=== PATIENT | male | born 2000 | race Caucasian/White ===

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

== ENCOUNTER 2024-06-26 08:00 | Outpatient (RCR) | payer OTHER, SELFPAY ==
--- NOTE | 2024-06-19 11:12 | BH.SGPN.GN ---
Behaviors/Verbalizations/Mental Status: [] Client alert and oriented, casually dressed and groomed. Eye contact good. Motor activity appropriate. Speech within normal limits. Affect congruent, mood euthymic. Thoughts linear, logical, no signs of hallucinations or delusions. Client Response/Progress/Benefit: [] Client's first day in program and responded well to session, attentive and consistently provided input. Did well to process activity and work with group to relate the strategies used to overcome barriers in the activity to managing change in own life. Client identified a change would like to make is to improve groom habits. Client stated currently in preparation stage. Reported goal to work towards is utilize note cards with routine as reminders. Appeared to benefit from identifying a small goal to work towards. Client will continue IOP tx to prevent decompensation, gain healthy coping skills, and improve daily functioning. Narrative Note: []
--- NOTE | 2024-06-26 08:59 | BH.COMM_ITS ---
Communication Note Communication with Client Communication Note: Met with patient to complete intake paperwork. Completed [place] Suicide Screening. Moderate risk. Denies SI, plan, or intent. Passive thoughts of . See individual note for more information. No hx of attempts. Protective factors reported. Future-oriented. Reviewed with Dr. Garcia with plan to admit to IOP with dx F33.2.
--- NOTE | 2024-06-26 10:10 | BH.SGPN.GN ---
Behaviors/Verbalizations/Mental Status: [] Client alert and oriented, casually dressed and groomed. Eye contact good. Motor activity appropriate. Speech within normal limits. Affect congruent, mood euthymic. Thoughts linear, logical, no signs of hallucinations or delusions. Client Response/Progress/Benefit: [] Client's first day in program and responded well to session, contributing to discussion and engaged during the activity. Group identified the benefits of change which included: better mental health, increased confidence, and improved relationships. Worked with the group to identify barriers to change, which included: uncomfortable emotions such as anxiety, lack of motivation,fear of failure, disappointing others, and loss of momentum. Client discussed how change can be hard when in a bad place with your mental health. Client participated along with group in activity where they identified and discussed the emotions related to change.. Benefited from increased awareness and understanding of emotions, benefits, and barriers related to change. Will continue IOP tx to continue to increase overall functioning.
--- NOTE | 2024-06-26 15:01 | BH.MDN ---
Multi-Disciplinary Note Note 60-min Individual: Time Started:: 09:00 Date: 06/26/24 Purpose of session/treatment goals addressed:: Purpose of session was to gather background information, build rapport, and identify treatment goals. Eye Contact:: Good Motor Activity:: Appropriate Appearance:: Casual Speech:: Appropriate Mood:: Anxious Affect:: Congruent Thoughts:: Linear, Logical and No evidence of hallucinations/delusions noted Staff Interventions:: CBT techniques, rapport building, strengths perspective, treatment planning, completed risk assessment / safety planning (Initial [place] Suicide Severity Rating Scale Screening and Risk assessment completed) and goal setting Client Response:: Reported they are seeking treatment because they have been feeling hopeless, useless, financial stress, and feels like they are not contributing to society. Client reported about 4 to 5 months ago is when their mental health started to decompensate after they lost their job. Client reported additional compounding stressor was when they were living in [place] with 2 roommates one of their roommates started to date client's ex-girlfriend in February or March. Client stated this created a really tense living situation and ultimately ended in client having to move of this year to [place]. Client stated after losing their job they felt less motivated which contributed to increased depression and his anxiety. Client reported they currently has been living in [place] since April of this year with 2 roommates. Client stated their living environment has improved but they still lack motivation, lacks energy, some loss of interest, loss of appetite, depressed mood, and sleeps too much. Client reported they do have some things they enjoy like playing games with their friends but when they are struggling tends to isolate and not go to those goldy nights. Client reported they have a supportive girlfriend but notes that she also has been struggling with her mental health with recent discharge from psychiatric hospitalization last week. Client stated they are hopeful getting help as well will be good for both of them. Client shared they have daily anxiety with racing thoughts, physical symptoms, and constant worry. Client said they has history of panic attacks, but notes does not have them on a frequent basis. Client stated they have probably had about 3 panic attacks in the last year. Client shares they have been to inpatient psychiatric unit on 2 occasions with the first 1 being in 2019 and the second being in 2020. Client stated both hospitalizations were for suicidal ideation. Client reported that the hospitalization in 2020 they felt was more serious because they did feel more actively suicidal compared to the 2019 was when they were pink slipped by a therapist at the time. Client reported they feel like their mental health currently impacts ability to function because they sleep about 10 to 12 hours a day which includes taking 2-3 naps to escape. Client stated they also drink about 3-5 alcoholic drinks 4-5 times a week. Client stated this is the most alcohol they have ever drank in his life which is something they reported they wants to decrease. Client reported they did not drink last night but told himself they want to not drink this week while they is in IOP. Client is established with an individual counselor at [facility], and they see this therapist 2 times a week virtually. Client stated they is also established with a psychiatrist through [facility] and they see a psychiatrist monthly. Client reported while they is in the program they would like to learn strategies to help manage his anxiety, help with decreasing negative self-talk, work through fear of failure and fear of rejection, and improve ability to cope with depressed symptoms. Risks/Concerns:: Per C-SSRS client is moderate risk for suicidal behavior. Client reports lifetime history of suicidal thoughts with intention in 2020. Client reported at the time he was really depressed and had called his mom letting her know that if she did not come to see him he would probably kill himself. Client stated after talking to his mom he was hospitalized inpatient psychiatric facility and then did a virtual IOP program through [facility]. Client stated in the last 30 days he denies any suicidal intent or plan. Client reported last 3 days he has had suicidal thoughts with ideas and of using a gun. Client stated he knows his parents have guns but denies access to firearms at his apartment. Client reported his parents have the gun secured in their home. Client denies any suicidal attempts throughout his life. Client reports history of non-suicidal self-injurious behavior with most recent self-harm about 6 months ago. Client stated self-harm is not something that he engages in consistently. Client stated he did write a suicide note 1 time in 2020 but did not write it with the intent to give to anybody at the time but just in case anything happened to him. Client denies any additional preparatory behaviors since then. Client denies any aborted or interrupted suicide attempts. Client denies current suicidal ideation, plan, or intention. Client stated he feels able to maintain safety. Client describes having a very supportive social network through his 2 roommates, a girlfriend, and parents. Progress Toward Goals/Plan:: No progress observed given first day in IOP. Client stated that would like to learn skills and strategies on how to manage depression and anxiety more effectively so that can improve daily functioning. Client stated does have a job starting tomorrow and is looking forward to getting back to having more structure and routine. Client reported the new job stated they would be very accommodating for them so that they can complete IOP while working maybe on a part-time basis to start. Plan is for client to continue IOP to improve daily functioning, increase healthy coping skills, and prevent decompensation. Time Stopped:: 10:00
--- NOTE | 2024-06-28 13:59 | BH.DS_ITS ---
Discharge Summary Demographics Date of Admission:: 06/26/24 Discharge Date: 06/28/24 Presenting Problems at Admission:: Reported they are seeking treatment because they have been feeling hopeless, useless, financial stress, and feels like they are not contributing to society. Client reported about 4 to 5 months ago is when their mental health started to decompensate after they lost their job. Client reported additional compounding stressor was when they were living in [place] with 2 roommates one of their roommates started to date client's ex-girlfriend in February or March. Client stated this created a really tense living situation and ultimately ended in client having to move of this year to [place]. Client reported they feel like their mental health currently impacts ability to function because they sleep about 10 to 12 hours a day which includes taking 2-3 naps to escape. Client stated they also drink about 3-5 alcoholic drinks 4-5 times a week. Client stated this is the most alcohol they have ever drank in his life which is something they reported they wants to decrease. 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 Client admitted to [facility] on 06/28/24. Treatment Progress During Treatment & Response: No progress observed given client only attended one IOP session. Issues Still to be Addressed:: Client could benefit from building healthy skills, challenging distortions, improving motivation, and improving distress tolerance. Discharge Recommendations/Instructions:: Client encouraged to follow recommendations provided by [facility] Discharge Team. Discharge Handout
== END 2024-06-28 14:39 ==
LOC: BHIOP 08:00
PROVIDERS: Referring Provider Psychiatry & Neurology Psychiatry; Visit Provider Psychiatry & Neurology Psychiatry
DX: F33.2 Major depressive disorder, recurrent severe without psychotic features (principal); F10.90 Alcohol use, unspecified, uncomplicated; F41.9 Anxiety disorder, unspecified; Z79.899 Other long term (current) drug therapy
CPT/HCPCS: S9480; 90837; 90853

== ENCOUNTER 2024-07-10 08:00 | Outpatient (RCR) | payer OTHER, SELFPAY ==
--- NOTE | 2024-07-10 09:01 | BH.COMM_ITS ---
Communication Note Communication with Client Communication Note: Met with patient to complete intake paperwork. Completed [place] Suicide Screening. Moderate risk. Denies SI, plan, or intent. Passive thoughts of . No hx of attempts. Protective factors reported. Future- oriented. Stated recent psychiatric admission was not due to suicidal thoughts or risk. Reported was hospitalized due to dissociation and not functioning. Reviewed with Dr. Garcia with plan to admit to [facility] with dx F33.2.
--- NOTE | 2024-07-10 09:05 | BH.SGPN.GN ---
Behaviors/Verbalizations/Mental Status: [] Eye contact is good. Motor activity is appropriate. Appearance is casual. Speech is Appropriate. Mood is depressed. Affect is congruent. Thoughts are linear and logical. No evidence of psychosis. Reviewed daily check in sheet and pt reports 2/5 for suicidal ideations and 0/5 for intent. Risk assessment completed prior to group. Client Response/Progress/Benefit: [] Pt was an active participant in group discussions. Attentive. Daily symptom tracker notes 2/5 for depression and anxiety.. Briefly introduced himself to the group as this was his first day in IOP. ? I struggle with ruminating?. He briefly discussed his recent psychiatric admission as well as medication changes which have helped him. Utilizing ?DBT skills? consistently which he has found helpful in the moment. Several psychosocial stressors currently. Progress noted. Benefited from group support, encouragement, and feedback. Will continue in [facility] to maintain safety, prevent decompensation/re-admission to psych, and to increase healthy coping skills. Narrative Note: []
--- NOTE | 2024-07-10 10:15 | BH.SGPN.GN ---
Behaviors/Verbalizations/Mental Status: [] Client alert and oriented, casually dressed and groomed. Eye contact good. Motor activity appropriate. Speech within normal limits. Affect congruent, mood euthymic. Thoughts linear, logical, no signs of hallucinations or delusions. Client Response/Progress/Benefit: [] Client was an active participant AEB contributing to discussion, taking notes, and engaging in group activity. Connected with the topic of pitfalls and listened to group discussion on barriers that prevent from choosing a healthier path to mental wellness. Group worked together to identify examples of personal pitfalls. Pt identified personal pitfalls to include: self-sabotage, inability to make decisions, not acknowledging self-worth, and upset over things can't control. Client benefited from group as client learned to better identify potential barriers to improving mental health symptoms. Client will continue IOP tx to promote use of healthy coping skills, challenge negative/distorted thoughts, and prevent decompensation.
--- NOTE | 2024-07-10 11:15 | BH.SGPN.GN ---
Behaviors/Verbalizations/Mental Status: []Client alert and oriented, casually dressed and groomed. Eye contact good. Motor activity appropriate. Speech within normal limits. Affect congruent, mood euthymic. Thoughts linear, logical, no signs of hallucinations or delusions. Client Response/Progress/Benefit: [] Pt receptive of session, engaged throughout AEB Pt actively listening and contributing to discussion as well as taking notes.? Pt participated in the experiential activity and did well to communicate ideas with peers and manage emotions. Pt attentive as group processed how the emotions and perspective of the group impacted the activity. Group worked together to identify different coping skills to help manage pitfalls. Pt identified pitfall they struggle with as getting upset over things he cannot control. Pt plans to work on their pitfall by practicing self-compassion. Benefited from identifying personal pitfalls and strategies to overcome these pitfalls. Pt will continue IOP tx to prevent decompensation, gain healthy coping skills, and improve daily functioning. Narrative Note: []
--- NOTE | 2024-07-12 09:05 | BH.SGPN.GN ---
Behaviors/Verbalizations/Mental Status: [] Client alert and oriented, casual appearance. Eye contact good. Motor activity appropriate. Speech within normal limits. Affect congruent, mood anxious. Thoughts linear, logical, no signs of hallucinations or delusions. Reviewed client's symptom tracker, no risk for suicidal ideation, plan, or intent. Client Response/Progress/Benefit: [] Client responded well to session AEB listening to others and sharing thoughts/feelings. Client shared current stressor is feeling anxious because he is waiting to hear back from a job that he interviewed with last week. Client reported he really thinks he could benefit from having a job so it has been stressful financially to not have something consistently coming in. Client stated mental positive is taking his meds consistently which historically he stated is something he has struggled with. Client stated additional mental positive as being more open with his family and friends about how he is feeling instead of keeping it to himself. Appeared to benefit from support from peers. Will continue IOP tx to promote use of healthy coping skills, improve confidence, and prevent decompensation. Narrative Note: []
--- NOTE | 2024-07-12 10:10 | BH.SGPN.GN ---
Behaviors/Verbalizations/Mental Status: [] Pt alert and oriented, casually dressed and groomed. Eye contact good. Motor activity appropriate. Speech within normal limits. Affect congruent, mood depressed and anxious. Thoughts linear, logical, no signs of hallucinations or delusions. Client Response/Progress/Benefit: [] Pt an active participant in group discussions on defining conflict (internal/external) and possible benefits to conflict. Attentive during psychoeducation on conflict styles (avoidant, accommodating, competing, cooperative) and engaged during group discussion in which peers identified the benefits and consequences to each conflict style. Pt identified that they are a mix between cooperative, competing, and avoidant. . Benefited from increased awareness of the impact of conflict styles in mental health. Will continue in IOP tx for one more day to prevent decompensation/re-admission to psych unit, increase healthy coping, and improve functioning to return to work. Narrative Note: []
--- NOTE | 2024-07-12 11:10 | BH.SGPN.GN ---
Behaviors/Verbalizations/Mental Status: []Eye contact is good. Motor activity is appropriate. Appearance is casual. Speech is Appropriate. Mood is content. Affect is congruent. Thoughts are linear and logical. No evidence of psychosis. Client Response/Progress/Benefit: [] Pt was an active participant in group discussions and activity. Engaged with peers in activity and identifying healthy ways to approach each conflict scenario. Group discussed various conflict resolution skills that can be useful in addressing conflict outside of IOP. Benefited from practicing and learning conflict resolution skills during group activity. Able to identify areas pt wants to work on to improve how pt manages conflict both internally and externally. Expressed wanting to work on their communication skills with their roommates to prevent conflict avoidance and ensure his needs are met as well. Will continue in IOP to improve consistent mood stability, promote application of skills, and prevent decompensation. Narrative Note: []
--- NOTE | 2024-07-12 14:01 | BH.MDN ---
Multi-Disciplinary Note Note 45-min Individual: Time Started:: 12:05 Date: 07/12/24 Purpose of session/treatment goals addressed:: Purpose of session was to gather background information, identify treatment goals, and build rapport. Eye Contact:: Good Motor Activity:: Appropriate Appearance:: Casual Speech:: Appropriate Mood:: Euthymic Affect:: Congruent Thoughts:: Linear, Logical and No evidence of hallucinations/delusions noted Staff Interventions:: CBT techniques, mindfulness skills, rapport building, strengths perspective, treatment planning and taught coping skills (breathing and grounding) Client Response:: Client reported he is feeling better since being discharged from inpatient psychiatric unit. Client stated he went to the inpatient psychiatric unit because his after talking to his outpatient therapist they discussed how he has been struggling with daily functioning due to severe dissociation. Client reported he did not go to the hospital because he was having active suicidal thoughts with the intent to kill himself. Client stated he still will have occasional passive thoughts of but denies any active suicidal thoughts. Client reported while he was inpatient they changed some of his medications and added vitamin D. Client reported once he was discharged from inpatient he felt less anxious, improved mood, and improved motivation. Client stated he was able to many things done around the house the last couple days. Client reported his anxiety and depression have significantly decreased compared to before he went into the hospital. Client shared prior to hospitalization he started IOP on 06/26/24 seeking treatment because he had been feeling hopeless, useless, financial stress, and felt like he wasn't contributing to society. Client reported about 4 to 5 months ago is when their mental health started to decompensate after they lost their job. Client reported additional compounding stressor was when they were living in [place] with 2 roommates one of their roommates started to date client's ex-girlfriend in February or March. Client stated that created a really tense living situation and ultimately ended in client having to move to [place]. Client stated after losing their job he felt less motivated which contributed to increased depression and his anxiety. Client reported he currently has been living in [place] since April of this year with 2 roommates. Client stated his living environment has improved but they still lack motivation, lacks energy, some loss of interest, loss of appetite, depressed mood, and sleeps too much. Client stated with the help of his girlfriend he has been able to apply to over 10 jobs. Client reported he had a job interview for a [employer], but has not heard back if he has been hired. Client stated his feeling antsy because he wants to know if this job will work out. client reported he does believe being without a job for several months does negatively impact his mood. Client stated having a job gives purpose, direction, and structure. Client reported he also would have decreased financial stress because he could afford his bills. Client stated while in IOP he would like to learn skills to manage his anxiety more effectively, improve ability to challenge distorted thoughts, and improve daily functioning. Risks/Concerns:: Client reports passive thoughts of . Client denies active suicidal thoughts, plan, or intention to date. Future oriented. Denies access to firearms. Identifies family as protective factor. Lives with supportive roommates. Progress Toward Goals/Plan:: Progress noted with client reporting improved mood, decreased anxiety, and improved motivation since being discharged from inpatient late last week. Client reported having some medication changes seems to have improved his mood, especially with the added vitamin D. Client continues to work feeling anxious about his financial situation due to not having a job for several months. Client reported he does have a goal to apply to several jobs everyday. Plan is for client to continue IOP to improve healthy coping skills, challenge distorted thoughts, and prevent decompensation. Time Stopped:: 12:40
--- NOTE | 2024-07-12 14:58 | BH.PSA ---
Development & Family of Origin Family Who currently lives in your home?: Lives with two roommates.
--- NOTE | 2024-07-12 14:59 | BH.MTP ---
Master Treatment Plan Patient Information Program Physician:: Dr. Garcia Primary Therapist:: Kiarra Victoria, [facility] Psychiatric Diagnoses Psychiatric Diagnoses:: 1. Major depressive disorder, recurrent, severe without psychosis 2. Generalized anxiety disorder 3. Financial, job and primary support issues Diagnosis Code(s):: F33.2 Estimated LOS Estimated LOS (in weeks):: 6 Problem/Goal #1 Problem/Goal #1 Stated Goal:: Client will reduce depression, feelings of hopelessness, and low motivation due to Major Depressive Disorder through Intensive Outpatient Program. Description of Barriers: Potential barriers include: distorted thoughts, negative self-talk, hx of not taking medications consistently, and low motivation. Functional Impact: The patient is a 23-year-old single male who identifies as nonbinary with a history of depression, anxiety and panic attacks who was referred to the [facility] behavioral health IOP after recent psychiatric admission at [facility] from June 29 to July 05, 2024 for depression and suicidal ideation. Recent stressors include the patient losing his job for 5 months ago and this has resulted in financial stress. Another stressor was the patient was living in [place] and one of his roommates started to date his ex girlfriend in March 2024 so the patient moved out of there and moved back to [place] and he now lives in [place] with 2 roommates. The patient endorses sadness, hopelessness, worthlessness, lack of motivation, loss of interest, but still enjoys video games play and playing them with friends. Energy has been lower for the past 2 or 3 days and his concentration is somewhat decreased. He endorses guilt, passive thoughts of . He denies suicidal ideation, plan for suicide, homicidal ideation, hallucinations, delusions, goldy. Objectives Objective #1: Stated Objective: Client will learn and utilize 2-3 healthy coping strategies to manage depressive symptoms. Interventions: Therapist will utilize CBT techniques to assist client with understanding the connection between thoughts, feelings and behaviors. Education will be provided on behavioral activation. Therapist will assist client in learning internal coping strategies to manage depressive symptoms, along with helping client identify triggers. Discharge Criteria: Client will have achieved this goal when can verbalize and has practiced at least 2 healthy coping strategies that successfully manage depressive symptoms. Target Date: 08/21/24 Review Date: 08/07/24 Objective #2: Stated Objective: Client will identify and replace 2-3 negative thinking patterns that reinforce feelings of hopelessness and helplessness. Interventions: Through group and individual therapy sessions client will learn how to identify, challenge, and replace dysfunctional thoughts with positive self-enhancing thoughts. Discharge Criteria: Client will have achieved this goal when can identify at least 2 negative thinking patterns, and replace thoughts with rational thoughts. Target Date: 08/21/24 Review Date: 08/07/24 Problem/Goal #2 Problem/Goal #2 Stated Goal:: Stabilize anxiety level while increasing ability to function on daily basis. Description of Barriers: Potential barriers include: distorted thoughts, negative self-talk, hx of not taking medications consistently, and low motivation. Functional Impact: The patient is a 23-year-old single male who identifies as nonbinary with a history of depression, anxiety and panic attacks who was referred to the [facility] behavioral health IOP after recent psychiatric admission at [facility] from June 29 to July 05, 2024 for depression and suicidal ideation. Recent stressors include the patient losing his job for 5 months ago and this has resulted in financial stress. Another stressor was the patient was living in [place] and one of his roommates started to date his ex girlfriend in March 2024 so the patient moved out of there and moved back to [place] and he now lives in [place] with 2 roommates. The patient endorses sadness, hopelessness, worthlessness, lack of motivation, loss of interest, but still enjoys video games play and playing them with friends. Energy has been lower for the past 2 or 3 days and his concentration is somewhat decreased. He endorses guilt, passive thoughts of . He denies suicidal ideation, plan for suicide, homicidal ideation, hallucinations, delusions, goldy. Objectives Objective #1: Stated Objective: Client will learn and implement 2-3 calming skills to reduce overall anxiety and manage anxiety symptoms. Interventions: Therapist and group sessions will help client identify physiological warning signs of anxiety, increase awareness of thoughts that increase anxiety, and identify behaviors that reinforce anxious symptoms. Group and individual counseling will teach client calming skills to help manage anxious symptoms. Discharge Criteria: Client will have achieved this goal when can verbalize at least 2 calming skills and reports skills successfully help reduce anxious symptoms. Target Date: 08/21/24 Review Date: 08/07/24 Objective #2: Stated Objective: Client will identify 2-3 anxiety triggers and 2 coping skills to use when feeling anxious. Interventions: Therapist will assist client in exploring what triggers anxiety and teach client coping strategies to effectively manage anxiety symptoms. Discharge Criteria: Client will have met this goal when can identify at least 2 triggers to anxiety and verbalize two healthy ways to cope with feelings of anxiety. Target Date: 08/21/24 Review Date: 08/07/24
--- NOTE | 2024-07-17 13:52 | BH.DS ---
Discharge Summary Demographics Date of Admission:: 06/26/24 Discharge Date: 06/28/24
== END 2024-07-13 23:59 ==
LOC: BHIOP 08:00
PROVIDERS: Referring Provider Psychiatry & Neurology Psychiatry; Visit Provider Psychiatry & Neurology Psychiatry
DX: F33.2 Major depressive disorder, recurrent severe without psychotic features (principal); F41.1 Generalized anxiety disorder
CPT/HCPCS: S9480; 90834; 90853

== ENCOUNTER 2024-07-14 08:01 | Outpatient (RCR) | payer OTHER, SELFPAY ==
--- NOTE | 2024-07-14 09:05 | BH.SGPN.GN ---
Behaviors/Verbalizations/Mental Status: [] Eye contact is good. Motor activity is appropriate. Appearance is casual. Speech is Appropriate. Mood is euthymic. Affect is full. Thoughts are linear and logical. No evidence of psychosis. Reviewed daily check in sheet and no reports of suicidal ideations or intent. Client Response/Progress/Benefit: [] Pt was an active participant in group discussions. Attentive. Emotion for today is excited. Has been taking his medications consistently which had been a challenge for him in the past. Shared recent stressful event and how he used anxiety management strategies. Has psychosocial stressors which according to pt he is managing appropriately. Since discharge from psychiatric unit pt has been utilizing skills and is hopeful. Progress noted. Benefited from group support, encouragement, and feedback. Will continue in IOP to maintain safety/prevent decompensation, increase healthy coping, and improve functioning. Narrative Note: []
--- NOTE | 2024-07-14 10:16 | BH.SGPN.GN ---
Behaviors/Verbalizations/Mental Status: [] Eye contact is good. Motor activity is appropriate. Appearance is casual. Speech is Appropriate. Mood is content. Affect is congruent. Thoughts are linear and logical. No evidence of psychosis. Client Response/Progress/Benefit: [] Pt participated at times during group discussion. Engaged in group activity and attentive during psychoeducation. Along with peers, pt was able to identify barriers to taking action in their life. Identified several symptoms and stressors that pt feels are holding them back from progress such as fear of failure, people pleasing, and fear of disappointing others. Stated these things have kept pt from giving himself credit for his own accomplishments. Benefited from increased self-awareness of obstacles. Will continue IOP tx to prevent decompensation, stabilize mood, and increase consistency of healthy coping. Narrative Note: []
--- NOTE | 2024-07-14 11:10 | BH.SGPN.GN ---
Behaviors/Verbalizations/Mental Status: []Pt alert and oriented, casually dressed and groomed. Eye contact good. Motor activity appropriate. Speech within normal limits. Affect congruent, mood dysthymic. Thoughts linear, logical, no signs of hallucinations or delusions. Client Response/Progress/Benefit: [] Pt responded well to session, taking notes and participating in worksheet discussion. Pt connected with the discussion on motion vs action steps, and this helped pt learn how to set goals differently. Pt set a goal to get a job. Pt identified motion steps including working on resume, identifying his expectations for a job, asking for help from girlfriend, and sending follow up e-mails after applying. Pt stated what will help take action is having an accountability meng and expanding jobs willing to apply for. Appeared to benefit from identifying a small goal to benefit mental health. Pt is to continue IOP tx to reinforce healthy coping skills, increase follow through and prevent decompensation.
--- NOTE | 2024-07-17 09:00 | BH.SGPN.GN ---
Behaviors/Verbalizations/Mental Status: [] Eye contact is good. Motor activity is appropriate. Appearance is casual. Speech is Appropriate. Mood is euthymic. Affect is full. Thoughts are linear and logical. No evidence of psychosis. Reviewed daily check in sheet and no reports of suicidal ideations or intent. Client Response/Progress/Benefit: [] Pt was an active participant in group discussions. Attentive. Daily symptom tracker notes 10/18 for depression. Pt shared mental health wins from over the weekend. I was able to not have a breakdown during stressful events. Overall reports managing well since his discharge from inpatient psychiatric unit. Identifying his stressors and utilizing skills consistently. Able to challenge and reframe thoughts and feels confident and motivated to seeking employment feeling as if his mental health will not impact his ability to work. Progress noted. Benefited from group support, encouragement, and feedback. Will continue in IOP to maintain safety, prevent decompensation/ re-admission to psych, and to increase healthy coping. Narrative Note: []
--- NOTE | 2024-07-17 10:15 | BH.SGPN.GN ---
Behaviors/Verbalizations/Mental Status: [] Eye contact is good. Motor activity is appropriate. Appearance is casual. Speech is Appropriate. Mood is content. Affect is congruent. Thoughts are linear and logical. No evidence of psychosis. Client Response/Progress/Benefit: [] Pt receptive to session AEB contributing to group discussion, as well as listening attentively to others, and taking notes. Worked with group to brainstorm the definition of stress, the positive and negative aspects of stress on physical and mental health as well as the impact of stress on performance, relationships, and mental health. Pt shared their top stressors to be: finances, unemployed, and his identity. Shared when feeling overwhelmed with stress pt tends to isolate, self-sabotage, and shut-down . Benefited from increased awareness of positive and negative stress as well as how stress impact individuals. Will continue in IOP to prevent decompensation/re-admission to psych unit, maintain safety, and increase healthy coping. Narrative Note: []
--- NOTE | 2024-07-17 11:15 | BH.SGPN.GN ---
Behaviors/Verbalizations/Mental Status: []Pt alert and oriented, casually dressed and groomed. Eye contact good. Motor activity appropriate. Speech within normal limits. Affect congruent, mood calm. Thoughts linear, logical, no signs of hallucinations or delusions. Client Response/Progress/Benefit: [] Pt was an attentive and active participant in group discussions and experiential activity, doing well to regulate their emotions throughout the activity and work with peers. Attentive during psychoeducation on the 4 A's (Avoid, adapt, alter, accept) of coping with stress. Shared that they would benefit most from altering his perspective about his mental health journey and being less self-critical. Was able to identify the connection between the experiential activity and utilization of stress management skills. Benefited from increased awareness of stress management strategies. Pt will continue IOP tx to prevent decompensation, improve daily functioning, and gain healthy coping skills. ? Narrative Note: []
--- NOTE | 2024-07-19 12:21 | PCM.BH.PSYEV ---
Psychiatric Evaluation Initial Evaluation Initial Evaluation: History of Present Illness: [] The patient is a 23-year-old single male who identifies as nonbinary with a history of depression, anxiety and panic attacks who was referred to the [facility] behavioral health IOP after recent psychiatric admission at [facility] from June 29 to July 05, 2024 for depression and suicidal ideation. Recent stressors include the patient losing his job for 5 months ago and this has resulted in financial stress. 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 Another stressor was the patient was living in [place] and one of his roommates started to date his ex girlfriend in March 2024 so the patient moved out of there and moved back to [place] and he now lives in [place] with 2 roommates. He has a new girlfriend who is supportive but also has mental health issues and he has been with her for 9 months. The patient endorses sadness, hopelessness, worthlessness, lack of motivation, loss of interest, but still enjoys video games play and playing them with friends. Appetite is okay and his sleep has improved since discharge from his psych admit he is now getting 8 hours of sleep and only 1 nap a day. Prior to his psych admit he was sleeping 10 to 12 hours a day +2-3 naps a day to escape. Energy has been lower for the past 2 or 3 days and his concentration is somewhat decreased. He endorses guilt, passive thoughts of . He denies suicidal ideation, plan for suicide, homicidal ideation, hallucinations, delusions, goldy. He has no access to guns. He is a worrier by nature and at times has racing thoughts. He has not had any panic attacks since a few months ago. He denies OCD, eating disorder, trauma, PTSD, and seizure. He had 1 concussion at age 13. For 2 months prior to his psychiatric admission he has he had increase his alcohol use to 3-5 alcoholic drinks about 4 times a week but since discharge from his psych admit on July 05 he has only been drinking on weekends and has use less alcohol. Current Psychiatric Medications: [] Zoloft 50 mg p.o. daily (x 2 weeks); propranolol 10 mg p.o. as needed (only uses it once in a while); vitamin D 50,000 units p.o. once a week (for 2 weeks now) Past Psychiatric History: [] Patient has a history of 3 psychiatric admissions in 2018, 2020 and in June, as noted above. They were all for suicidal ideation but the patient has no suicide attempts ever. Patient has a therapist she sees by telehealth and a psychiatrist for the past few months at a local counseling place. He was first depressed in 11th grade and first took psych meds and had his first counseling at age 18. His first self-harm was at age 19 and it was bruising himself with a belt on the chest or his back but he is only done that off-and-on 3 episodes since age 19. He did a virtual IOP at [facility] in 2020 but did not like it. He was on Lexapro 15 mg daily which was discontinued when he was admitted to the hospital on June 29, 2024. Substance Use History: [] Non-smoker. No vaping. He is smoking 1 joint of marijuana daily. He decreased his use in the past few months and prior to that he was smoking 3 joints a day. No other drug use. He does use alcohol as described in the present illness but denies any blackouts. No morning drinking and first used alcohol at age 19. Allergies: [] Morphine Medications: [] Antihistamines as needed twice a week plus psych meds as noted above. Past Medical History: [] Asthma, low vitamin D, history of ear tubes surgery. Otherwise negative had an endoscopy once for GI symptoms but it was normal. He has normal sexual function and identifies as pansexual. Family Psychiatric History: [] Mother is 55 years old and father is 59 years old. His mother, maternal grandmother and maternal aunts have anxiety and depression. He has 1 brother with depression and anxiety. He has a maternal aunt who is alcoholic. No suicides in the family. Personal/Social History: [] He was born and raised in [place] and describes his childhood as tight on money but comfortable with a good home life. His mother and father were both loving and supportive. He denies verbal, physical or sexual abuse. He is the youngest of 4 siblings and he has a sister 2 years older, her brother 4 years older and her brother 7 years older and he is close to most of his siblings. School he says was not terrible but he went to the [employer] in 11th and 12th grade and lost most of the friends he had in high school at that time. He graduated high school and did 2 years of college at 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 His longest job is [employer] for 2 to 3 years and his most recent 1 that he recently got fired from was for 18 months. He has had 3 or 4 serious girlfriends which were mostly females. They range from 9 months to 5 years and there was no abuse in any of his relationships. 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 No DUIs. No arrests. Review of Systems: [] Review of systems is positive for occasional allergy hayfever symptoms and asthma symptoms but otherwise negative except as noted in the present illness. Vital Signs: [] Vital signs are reviewed in the nurses notes and updated and the patient is deemed medically able to participate in the IOP. Laboratory: He had blood work done 2 weeks ago when he was admitted to [facility] and vitamin D was low so they replaced it. Mental Status Examination: [] The patient is a 23-year-old male who appears normal for stated age and has a mustache. He is ambulatory with a normal gait and has no psychomotor agitation or retardation. He is cooperative and pleasant during the interview. Eye contact is good and speech is normal rate and rhythm and fluent with no pressure. Mood is depressed and anxious. Affect is constricted mildly. Thought process is goal-directed and organized. Thought content: There is evidence of passive thoughts of and depression. There is no evidence of suicidal ideation, plan for suicide, homicidal ideation, hallucinations, delusions or goldy. Reality testing is intact. Intelligence is average or above average. Judgment is intact. Insight: Fair. Diagnoses: [] 1. Major depressive disorder, recurrent, severe without psychosis 2. Generalized anxiety disorder 3. Financial, job and primary support issues Plan: [] The patient will start the IOP and behavioral health at [facility] as the structure, support, education and group therapy will hopefully prevent worsening of the patient's symptoms which could require rehospitalization. He felt safe during the interview and if it anytime he does not feel safe he agrees to let us know or go to the emergency room. No medication changes were made today as the patient follows up with his outpatient psychiatrist and 2 weeks and wishes to have them manage his medications for now. He will continue to follow-up with his outpatient providers and I will see the patient in follow-up in 3 weeks.
--- NOTE | 2024-07-19 12:33 | BH.DR.ITP ---
Initial Treatment Plan Patient Information Visit Information: ADMISSION DATE: EXPECTED LOS: 4-6 weeks Problems/Symptoms Problem #1:: Depression Symptom:: Sadness, hopelessness, worthlessness, guilt, decreased concentration, passive thoughts of , low energy, biological disruption of sleep Problem #2:: Anxiety Symptom:: Worry, racing thoughts, rumination
--- NOTE | 2024-07-21 09:05 | BH.SGPN.GN ---
Behaviors/Verbalizations/Mental Status: [] Pt alert and oriented, casually dressed and groomed. Eye contact good. Motor activity appropriate. Speech within normal limits. Affect congruent, mood depressed and anxious. Thoughts linear, logical, no signs of hallucinations or delusions. Reviewed pt?s symptom tracker, no risk for suicidal ideation, plan, or intent 07/21/24 Client Response/Progress/Benefit: []Pt was an active participant in group discussions. Attentive. Able to identify mental health wins including getting a job and challenging himself not to isolate following the presidential election results. Reports that he usually will isolate after receiving news he does not like and was proud that he reached out to friends instead. 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 Shared feeling excited about the prospect of employment as the company appears to be supportive of mental health and flexible.. Benefited from group support, encouragement, and feedback. Will continue in IOP to prevent decompensation, improve daily functioning, and increase conflict resolution skills. Narrative Note: []
--- NOTE | 2024-07-21 10:10 | BH.SGPN.GN ---
Behaviors/Verbalizations/Mental Status: [] Eye contact is good. Motor activity is appropriate. Appearance is casual. Speech is Appropriate. Mood is euthymic. Affect is full. Thoughts are linear and logical. No evidence of psychosis Client Response/Progress/Benefit: [] Pt was an active participant in group discussions. Attentive during psychoeducation. Contributed during interactive discussions in which peers attempted to define crisis. Group identified crisis examples. Group also worked together to identify warning signs and unhealthy responses to crisis which included shutting down, isolation, avoidance, over-thinking, disordered eating, and self-harm. Benefited from increased understanding of crisis and awareness of personal responses to crisis. Pt will continue IOP tx to prevent decompensation/re-admission to psych unit, increase healthy coping, and improve functioning. Narrative Note: []
--- NOTE | 2024-07-21 11:12 | BH.SGPN.GN ---
Behaviors/Verbalizations/Mental Status: []Pt alert and oriented, appropriate grooming/appearance. Eye contact good. Motor activity appropriate. Speech within normal limits. Affect congruent, mood euthymic. Thoughts linear, logical, no signs of hallucinations or delusions. Client Response/Progress/Benefit: []Pt was an active participant in group discussions. Attentive during psychoeducation. In small group pt along with peers developed an active plan for their crisis warning signs. Pt identified three crisis warning signs as well as an action plan for each. One crisis warning sign was decrease in self-care. Pt identified strategies to help with this such as: using opposite action to brush teeth at least once a day, shower every other day, thinking about gratification of engaging in self-care, and thinking about how he cares for his cats.?Benefited from increased awareness of crisis warning signs and by developing crisis intervention strategies. Will continue in IOP to improve consistent use of healthy coping skills, challenge negative/distorted thoughts, and prevent decompensation.
--- NOTE | 2024-07-25 09:05 | BH.SGPN.GN ---
Behaviors/Verbalizations/Mental Status: [] Pt alert and oriented, neatly dressed and groomed. Eye contact good. Motor activity appropriate. Speech within normal limits. Affect congruent, mood euthymic. Thoughts linear, logical, no signs of hallucinations or delusions. Reviewed pt?s symptom tracker, no risk for suicidal ideation, plan, or intent 07/25/24 Client Response/Progress/Benefit: []Pt was an active participant in group discussions. Attentive. Able to identify mental health wins including having a good first day of work yesterday and feeling like he is getting back to contributing to society again. Pt's stressor today is that he is feeling the urge to take on too many things now that he is feeling a little better. Pt reports he knows he has a pattern of burning himself out, so he wants to work on being more mindful. Pt stated pt is feeling content and appreciative this morning. Pt receptive to feedback from peers which pt reported was helpful. Progress noted. Benefited from group support, encouragement, and feedback. Will continue in IOP to promote mood stability, improve daily functioning, and increase distress tolerance skills. Narrative Note: []
--- NOTE | 2024-07-25 10:15 | BH.SGPN.GN ---
Behaviors/Verbalizations/Mental Status: []Pt alert and oriented, casually dressed and groomed. Eye contact fair. Motor activity appropriate. Speech within normal limits. Affect congruent, mood euthymic. Thoughts linear, logical, no signs of hallucinations or delusions. Client Response/Progress/Benefit: [] Pt was attentive during psychoeducation and participated in group activity. Group discussed what contributes to a person?s perspective and how perspective can positively or negatively impact mental health treatment. Pt reflected on their perspective today and how it is impacting them. Pt shared his perspective towards mental health treatment is closer to negative, but starting to see some hope that he can get better. Pt stated he is trying to put into action the skills to manage life stressors. Pt appeared to benefit from increasing awareness of different perspectives and how they can affect mental health. Pt will continue IOP tx to promote use of healthy coping skills, challenge distortions, and prevent decompensation.
--- NOTE | 2024-07-25 11:18 | BH.SGPN.GN ---
Behaviors/Verbalizations/Mental Status: []Pt alert and oriented, casually dressed and groomed. Eye contact good. Motor activity appropriate. Speech within normal limits. Affect congruent, mood content. Thoughts linear, logical, no signs of hallucinations or delusions. Client Response/Progress/Benefit: []Pt was attentive and contributed to group discussion. Pt worked with group to identify strategies that can help with challenging negative perspective. Pt stated he can remind self to look at it from someone else's point of view as a way to challenge negative perspective. Pt completed strengths exploration worksheet, identifying his personal strengths. Pt able to acknowledge how these strengths are helping pt and can continue to help pt in mental health journey. Pt identified wanting to work on leaning on strength of knowledge and to practice helping others understand his gender identity. Benefited from identifying personal strengths and strategies for enhancing use of identified strengths. Pt will continue IOP tx to continue practice healthy coping skills, maintain mood stability, and prevent decompensation. Narrative Note: []
--- NOTE | 2024-07-27 09:00 | BH.SGPN.GN ---
Behaviors/Verbalizations/Mental Status: [] Eye contact is good. Motor activity is appropriate. Appearance is casual. Speech is Appropriate. Mood is depressed. Affect is congruent. Thoughts are linear and logical. No evidence of psychosis. Reviewed daily check in sheet and no reports of suicidal ideations or intent. Client Response/Progress/Benefit: [] Pt was an active participant in group discussions. Attentive. Daily symptom tracker notes 3/5 for depression and 2/5 for anxiety. ? Yesterday really sucked?. Pt shared that he got fired from his job after only one day. Tearful. According to pt he is unclear on the reasons stating that he met with his boss who just kept asking him ? what do you think you could have done better??. Feeling hopeless regarding finding full-time employment. Proud of himself for not ?drinking? or utilizing other unhealthy coping skills. Group was supportive and provided empathy. Allowed pt to vent frustrations. Will continue in IOP to prevent decompensation/re-admission to psych unit, increase healthy coping, and improve functioning. Narrative Note: []
--- NOTE | 2024-07-27 10:10 | BH.SGPN.GN ---
Behaviors/Verbalizations/Mental Status: [] Eye contact is good. Motor activity is appropriate. Appearance is casual. Speech is Appropriate. Mood is dysthymic. Affect is congruent. Thoughts are linear and logical. No evidence of psychosis. Client Response/Progress/Benefit: [] Pt did well to participate in activity and was engaged and attentive during psychoeducation and interactive discussion on coping skills, why people use unhealthy coping skills, how to replace unhealthy coping skills, and internal vs external coping skills. Attentive as peers came up with list of negative coping skills including not asking for help, avoidance, isolating, sleeping, shopping, substance use, and several others. Pt stated he has used canceling plans, distraction, and sleep as an unhealthy coping skill. Recognizes this makes things worse. Stated she has been working on challenging herself to use opposite action. Group discussed the effects of how maladaptive coping skills can impact mental health in a negative way. Benefited from increased understanding of unhealthy coping skills and the need for developing healthy internal and external coping skills. Will continue in IOP to promote healthy coping skills, improve mood stability, and prevent decompensation. Narrative Note: []
--- NOTE | 2024-07-27 12:47 | BH.MDN_ITS ---
Multi-Disciplinary Note Note 45-min Individual: Time Started:: 11:10 Date: 07/27/24 Purpose of session/treatment goals addressed:: Purpose of session was to address goals 1 and 2 from MTP. Eye Contact:: Fair Motor Activity:: Appropriate Appearance:: Casual Speech:: Appropriate Mood:: Other (sad) Affect:: Constricted Thoughts:: Linear, Logical and No evidence of hallucinations/delusions noted Staff Interventions:: thought challenging, CBT techniques, strengths perspective, goal setting and taught coping skills Client Response:: Client reported feeling low today after being fired on the second day of work yesterday. Client expressed frustration that his boss could not give me specific examples as to why client was being temporarily terminated. Client reported his boss told him that he was not showing good work ethic on his first day on the job. Client stated he tried to get a second chance but his boss did not want to do that. Client reported he is feeling discouraged because he doesn't want to have to tell his family that he lost the job after one day. Client reported it's hard to not compare himself to his siblings because he views them as having successful careers. Client stated he did have an urge to drink alcohol after being fired, but was able to reach out to support to help process feelings and prevent use of unhealthy coping skills. Client reported he has been struggling with increased self-deprecating self-talk which he recognizes negatively impacts his mood. Client stated his girlfriend helped him apply to more jobs so he can keep moving on to find a job that is a good fit. Client reported he is having a harder time with motivation after the job didn't work out. Client receptive to reviewing healthy coping skills and strategies. 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 Risks/Concerns:: Denies suicidal ideation, plan or intention. Reports being able to maintain safety. Progress Toward Goals/Plan:: Cl reporting recent increase in depressed symptoms since getting fired from his new job on his second day of work. Client expressing anger towards not being given in his perspective a legitimate reason for the firing and not given a chance to improve. Progress can be noted AEB cl choosing to not drink alcohol when had the urge to drink as a coping skill. Cl has been reaching out to his girlfriend for support and she is assisting him with continuing to move forward by applying for more jobs. 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 Cl to continue IOP to increase consistent use of healthy coping skills, challenge negative thoughts, and prevent decompensation. Time Stopped:: 12:00
--- NOTE | 2024-07-31 09:05 | BH.SGPN.GN ---
Behaviors/Verbalizations/Mental Status: [] Eye contact is good. Motor activity is appropriate. Appearance is casual. Speech is Appropriate. Mood is depressed.. Affect is congruent. Thoughts are linear and logical. No evidence of psychosis. Reviewed daily check in sheet and pt reports 1/5 for suicidal ideations and 0/5 for intent. Client Response/Progress/Benefit: [] Pt was an active participant in group discussions. Attentive. Tearful at times. Daily symptom tracker notes 4/5 for depression and 3/5 for anxiety/irritability. Pt reports very challenging weekend stating that he utilized unhealthy coping strategies which included self-medicating with alcohol and self-harming. Feeling hopeless regarding finding employment. Was recently ?fired? after one day at a job. According to pt he has sent numerous applications and nobody has responded. Had an interview however was ?rejected?. Endorses decreased sleep and difficulty with ruminations. Regression noted since last week. Benefited from group support, encouragement, and feedback. Will continue in IOP to prevent decompensation/re-admission, increase healthy coping, and stabilize mood. Narrative Note: []
--- NOTE | 2024-07-31 10:10 | BH.SGPN.GN ---
Behaviors/Verbalizations/Mental Status: [] Eye contact is good. Motor activity is appropriate. Appearance is casual. Speech is Appropriate. Mood is dysthymic. Affect is congruent. Thoughts are linear and logical. No evidence of psychosis. Client Response/Progress/Benefit: [] Pt receptive of session, actively engaged throughout AEB taking notes, providing input, and contributing in small group discussion. Appeared to connect with group topic of automatic thoughts and cognitive distortions, as well as the impact of thought patterns on mental health, coping behaviors, and relationships. This particular group is very heavy on psychoeducation and pt appeared to connect with distortions and how they can impact functioning. Identified struggling with overgeneralization distortion. Pt appeared to benefit from gaining insight on distorted thinking patterns and how this impacts overall mental health. Will continue IOP to improve motivation, increase consistent use of healthy coping skills, and prevent decompensation.
--- NOTE | 2024-07-31 11:15 | BH.SGPN.GN ---
Behaviors/Verbalizations/Mental Status: [] Eye contact is good. Motor activity is appropriate. Appearance is casual. Speech is Appropriate. Mood is dysthymic. Affect is congruent. Thoughts are linear and logical. No evidence of psychosis. Client Response/Progress/Benefit: [] Pt was an active participant during group discussion. Pt was placed in a smaller group and participated in cognitive distortions jeopardy game with peers. Pt was engaged in the smaller group, participated in group interactions to brainstorm answers, and appeared to be comprehending cognitive distortions. Pt stated could connect with many of the distortions covered in group. Pt stated they now have knowledge on how cognitive distortions may skew his thoughts without realizing it in the moment. Benefited from gaining further insight and awareness of cognitive distortions as well as practicing ways to reframe and challenge thoughts. Will continue in IOP tx to increase healthy thinking patterns, functioning, and reduce maladaptive coping behaviors. Narrative Note: []
--- NOTE | 2024-08-02 09:05 | BH.SGPN.GN ---
Behaviors/Verbalizations/Mental Status: [] Client alert and oriented, casual appearance. Eye contact fair. Motor activity appropriate. Speech within normal limits. Affect congruent, mood depressed. Thoughts linear, logical, no signs of hallucinations or delusions. Reviewed client's symptom tracker, client scored a 2 out of 5, with 5 being severe, for thoughts of suicide. Client scored a 0/5, with 5 being severe, for risk of killing self. Client does not seem to be imminent risk to harm self. Client Response/Progress/Benefit: [] Client responded well to session AEB listening to others and sharing thoughts/feelings. Client scored on symptom tracker a 3/5 for depression and a 3/5 for anxiety. Client reported mental health positive as getting a job at a local [employer] as a part-time job. Client stated he is unsure if this job is going to provide enough consistent work but recognizes at least at the start. Client noted additional mental positive is cleaning litter boxes at his apartment. Client noted stressor is having his roommate sit him down yesterday to address some grievances they have with him in regards to lack of holding up to his part of keeping the apartment clean. Client stated his roommates do not understand how his mental health does impact his ability to be motivated and get things done and feels like a failure for not being able to keep up with his part of the apartment responsibilities. Appeared to benefit from support from peers. Will continue IOP tx to increase consistent use of healthy coping skills, challenge negative and distorted thoughts, and prevent decompensation. Narrative Note: []
--- NOTE | 2024-08-02 10:10 | BH.SGPN.GN ---
Behaviors/Verbalizations/Mental Status: []Pt alert and oriented, casually dressed and groomed. Eye contact good. Motor activity appropriate. Speech within normal limits. Affect constricted. mood depressed. Thoughts linear, logical, no signs of hallucinations or delusions. Client Response/Progress/Benefit: [] Pt was an active participant in group discussion. Attentive during psychoeducation on the CBT [place] (Thoughts, Behaviors, Emotions). Engaged in group discussion on how thoughts and behaviors can contribute to maintaining adverse feelings, such as depression, anxiety, and irritability. Completed worksheet in which pt identified a thought that is keeping them stuck or is in obstacle to increased mental wellness. The thoughts that pt identified were ?I?m not good enough and I?m a burden to my friends and family.? Shared this maintains depression and anxiety cycles. Pt benefited from increased awareness of the basis of CBT therapy as well as specific thoughts that are impacting pt's progress. Will continue in IOP to prevent decompensation, improve daily functioning, and increase distress tolerance. Narrative Note: []
--- NOTE | 2024-08-02 11:15 | BH.SGPN.GN ---
Behaviors/Verbalizations/Mental Status: []Pt alert and oriented, casually dressed and groomed. Eye contact good. Motor activity appropriate. Speech within normal limits. Affect congruent, mood depressed. Thoughts linear, logical, no signs of hallucinations or delusions. Client Response/Progress/Benefit: [] Pt responded well to session, contributing to discussion and attentive throughout discussion. Pt identified a negative thought that has kept them stuck. Pt's thought was I am a financial and emotional burden to family and friends and shouldn't burden them by asking for help.? Pt reported when they think this way, pt avoids, doesn't reach out for help, and takes on more than he can manage. Pt worked to reframe the thought by finding more rational, realistic ways to look at the thoughts and then processed them within group setting. Pt reframed the thought to ?My friends and family surround themselves with me because they love me.? Pt appeared to benefit from practicing challenging negative thinking with peers and gaining coping skills. Pt will continue IOP tx to promote mood stability, increase thought challenging, and further increase self-compassion. Narrative Note: []
--- NOTE | 2024-08-02 15:21 | BH.MDN_ITS ---
Multi-Disciplinary Note Note 30-min Individual: Time Started:: 12:10 Date: 08/02/24 Purpose of session/treatment goals addressed:: Purpose of session was to address goals 1 and 2 from MTP. Eye Contact:: Fair Motor Activity:: Appropriate Appearance:: Casual Speech:: Appropriate Mood:: Depressed Affect:: Flat Thoughts:: Linear, Logical and No evidence of hallucinations/delusions noted Staff Interventions:: thought challenging, CBT techniques, strengths perspective, goal setting, taught coping skills and other (reviewed healthy coping skills) Client Response:: Client reported feeling depressed the last few days because he still cannot find a consistent job which has lead to some increased negative thought patterns. 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 Client stated he has been already feeling down and depressed and then the other day his roommates asked to talk to him. 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 Client admitted he has been struggling with keeping up with the basic task that are expected of him as a roommate. Client stated he knows he is supposed to be cleaning the litter box daily and has only been doing it every few days. Client stated he is also left some food out which was a major complaint of his remains. Client stated he recognizes these are things that he can change and improve upon but felt like in the moment it was just another thing that he is doing wrong. Client stated he is having a hard time challenging his negative thoughts and looking at what he can do about a situation right now. Client somewhat open to talking about skills and strategies that he could utilize in the next few days to help bounce back from these recent stressors. 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 Discussed the importance of going back to basics with starting to identify daily goals of self-care and chores that he can do each day. Client stated he will take some time to please him video games to decompress and relax. Client stated he also will put his clothes away that he has been avoiding the last few days. Client stated he also plans to try to connect with his girlfriend because he knows it will be helpful even though in the moment he just wants to be alone. Risks/Concerns:: Client denies suicidal ideation, plan, or intention. Client did recently self-harm but states he does not want to engage in that behavior again and recognizes it does not solve anything. Client stated when he self harmed it was just the intent to have release not with the intent to kill himself. Client stated he feels able to maintain safety. Progress Toward Goals/Plan:: Decompensation noted as evidenced by client reporting increased depressed symptoms with decreased motivation, decreased energy, apathy, and difficulty completing household tasks. Client major stressor currently is not being able to find a solid job which she does think could help decrease his anxiety and depression by having more of a routine and having money come in. Discussed strategies and ideas of what patient could do in the next couple days to help bounce back from these recent stressors. Plan is for client to continue IOP to increase consistent utilization of healthy coping skills, challenge distorted and negative thoughts, and prevent decompensation. Time Stopped:: 12:35
--- NOTE | 2024-08-04 09:00 | BH.SGPN.GN ---
Behaviors/Verbalizations/Mental Status: [] Eye contact is good. Motor activity is appropriate. Appearance is casual. Speech is Appropriate. Mood is depressed/irritable. Affect is congruent. Thoughts are linear and logical. No evidence of psychosis. Reviewed daily check in sheet and pt reports 1/5 for thoughts of and 0/5 for suicidal intent. Client Response/Progress/Benefit: [] Pt was an active participant in group discussions. Attentive. Daily symptom tracker notes 2/5 for depression, anxiety, irritability, and self-harm urges. ? I?m very depressed?. Hopeless about getting a job ? No place will want me?. Attempting to use skills such as opposite action however limited benefit. Urges to isolate and avoid. Has social events planned this weekend however ? I don?t see myself going?. Regression noted for the past week. Benefited from group support, encouragement, and feedback. Will continue in IOP to prevent decompensation/re-admission to psych unit, increase healthy coping, and improve functioning. Narrative Note: []
--- NOTE | 2024-08-04 10:15 | BH.SGPN.GN ---
Behaviors/Verbalizations/Mental Status: []Pt alert and oriented, casually dressed and groomed. Eye contact good. Motor activity appropriate. Speech within normal limits. Affect congruent, mood content. Thoughts linear, logical, no signs of hallucinations or delusions. Client Response/Progress/Benefit: [] Pt took notes and contributed to group discussions. Attentive during psychoeducation on growth mindset. Participated during the activity. Interactive group discussion on growth mindset in which group verbalized their current fixed mindsets and how they affect their mental health. Pt shared common fixed mindset thoughts they have. These thoughts lead to feeling and staying stuck, give up, and self-criticism. Pt stated they have personally struggled with fixed thoughts causing them to remain depressed. Pt benefited from increased awareness of growth mindset and fixed thoughts and how fixed thoughts impact their mental health. Will continue IOP tx to prevent decompensation, improve daily functioning, and promote mood stability. Narrative Note: []
--- NOTE | 2024-08-04 11:10 | BH.SGPN.GN ---
Behaviors/Verbalizations/Mental Status: []Pt alert and oriented, neatly dressed and groomed. Eye contact good. Motor activity appropriate. Speech within normal limits. Affect congruent, mood depressed. Thoughts linear, logical, no signs of hallucinations or delusions. Client Response/Progress/Benefit: []Pt was an active participant during activity and discussion. Pt did well to remain attentive and participate as group worked on identifying characteristics and benefits of adopting a growth mindset. Worked with fellow participants in reframing the example fixed thoughts into growth mindset thoughts. Pt worked on changing own fixed thought and reframed the thought to ?something better may come along for work.? Pt also wants to work on using dialectical thinking. Pt appeared to benefit from challenging own thoughts and engaging in the activity. Pt will continue IOP tx to promote use of healthy coping skills, increase distress tolerance skills, and improve mood stability. Narrative Note: []
--- NOTE | 2024-08-07 09:00 | BH.SGPN.GN ---
Behaviors/Verbalizations/Mental Status: [] Eye contact is good. Motor activity is appropriate. Appearance is casual. Speech is Appropriate. Mood is euthymic. Affect is full. Thoughts are linear and logical. No evidence of psychosis. Reviewed daily check in sheet and pt reports 1/5 for suicidal ideations and 0/5 for intent. This has been baseline since admission. Client Response/Progress/Benefit: [] Pt participated throughout. Attentive and providing supportive feedback to peers. Daily symptom tracker notes 2/5 for anxiety and depression. Reports mental health wins as using opposite action to socialize over the weekend, noting this was more enjoyable than he initially expected. Additional win noted as having a job interview this afternoon and feeling anxious but optimistic about it. Shared that after speaking with his mom he is debating on whether to be transparent about being in the IOP program during the interview. Noted that his mother encouraged him not to mention it but pt feels this is deceptive. Benefited from group support, encouragement, and feedback regarding ways to mention having an obligation without risking discrimination based on mental health. Will continue in IOP to prevent decompensation, stabilize mood, and improve functioning. Narrative Note: []
--- NOTE | 2024-08-07 10:15 | BH.SGPN.GN ---
Behaviors/Verbalizations/Mental Status: []Patient was alert and oriented, casually dressed and groomed. Eye contact good. motor activity congruent. speech within normal limits. Affect congruent, mood euthymic. Thoughts linear, logical, no signs of hallucinations or delusion. Client Response/Progress/Benefit: []Pt participated in the group discussions AEB nodding and taking notes. Attentive during psychoeducation Goal Setting. Participated during the discussion on common barriers. Pt stated a personal barrier to accomplishing goals is laziness. Group also identified benefits of goals as sense of purpose, improved self-confidence, more motivation for other goals, and improved mental health. Pt identified personal benefits to goal setting. Benefited from increased awareness of mental health benefits of goals as well as psychoeducation on SMART goal criteria. Will continue in IOP to increase consistent use of healthy coping skills, challenge negative/distorted thoughts, and prevent decompensation.
--- NOTE | 2024-08-07 11:10 | BH.SGPN.GN ---
Behaviors/Verbalizations/Mental Status: []Pt alert and oriented, neatly dressed and groomed. Eye contact good. Motor activity appropriate. Speech within normal limits. Affect congruent, mood anxious and engaged. Thoughts linear, logical, no signs of hallucinations or delusions. Client Response/Progress/Benefit: [] Pt was engaged during discussion and willing to complete the worksheet challenging them to develop a personal SMART goal. Pt chose the goal of to clean the litterbox daily for a week. Pt stated ?laziness,? forgetfulness, unwillingness, and avoidance as barriers. Identified solutions of rewarding himself, setting an alarm, and opposite action. Benefited from this group by developing a short-term SMART goal related to mental health. Will continue IOP tx to promote use of healthy coping skills, reduce negative thinking patterns, and increase self-motivation. Narrative Note: []
--- NOTE | 2024-08-09 09:00 | BH.SGPN.GN ---
Behaviors/Verbalizations/Mental Status: []Client alert and oriented, casual appearance. Eye contact good. Motor activity appropriate. Speech within normal limits. Affect congruent, mood euthymic and anxious. Thoughts linear, logical, no signs of hallucinations or delusions. Reviewed client's symptom tracker, no risk for suicidal ideation, plan, or intent. Client Response/Progress/Benefit: []Client responded well to session AEB listening to others and sharing thoughts/feelings. Client reported mental health positive as choosing to work for [employer] for several hours recently to make money for his bills. Client reported additional win as using opposite action to be social with his roommates for a little instead of immediately isolating in his room. Client reported current stressor as going to his girlfriend's Thanksgiving gathering knowing that her grandpa is racist and homophobic. Client stated he doesn't want to be in a situation that makes him uncomfortable with what his girlfriend's grandpa might say. client responded well to suggestions by group to come up with a plan with his girlfriend on what they want to do if things were uncomfortable. Appeared to benefit from support from peers. Will continue IOP tx to maintain gains, continue reinforcement of healthy coping skills, and prevent decompensation.
--- NOTE | 2024-08-09 10:15 | BH.SGPN.GN ---
Behaviors/Verbalizations/Mental Status: [] Eye contact is good. Motor activity is appropriate. Appearance is casual. Speech is Appropriate. Mood is depressed. Affect is constricted. Thoughts are linear and logical. No evidence of psychosis. Client Response/Progress/Benefit: [] Pt was an active participant in group discussions. Attentive during psychoeducation on the 4 communication styles (Passive, Passive-Aggressive, Aggressive, and Assertive) and the obstacles to effective communication. ?Participated during interactive discussions on the benefits and disadvantages to each communication style. Along with peers was able to identify struggles and illusions to effective communication. Benefited from increased understanding of communication styles and how these can impact effective communication. Will continue in IOP tx to prevent decompensation/re-admission to psych unit, increase healthy coping, and improve functioning. Narrative Note: []
--- NOTE | 2024-08-09 11:15 | BH.SGPN.GN ---
Behaviors/Verbalizations/Mental Status: []Pt alert and oriented, neatly dressed. Eye contact good. Motor activity appropriate. Speech within normal limits. Affect congruent, mood euthymic. Thoughts linear, logical, no signs of hallucinations or delusions. Client Response/Progress/Benefit: [] Pt responded well to session AEB Pt listening attentively to others and providing input during group discussion on the pay offs and costs of the different communication styles. Pt able to connect how current communication style impacts mental health. Connected with peers? comments about importance of using assertive communication. Pt did well with practicing being assertive in the group activity and worked with group to identify potential skills for improving communication skills. Pt stated she will practice being assertive by ?being an active listener and using direct statements. Pt seemed to benefit from increasing awareness of healthy strategies to improve communication. Will continue IOP tx to reduce negative thinking patterns, improve self-confidence, and increase distress tolerance. Narrative Note: []
--- NOTE | 2024-08-09 12:19 | PCM.BH.PN ---
Progress Note Progress Note: History of Present Illness/Interim History: The patient is a 23-year-old single male who identifies as nonbinary with a history of depression, anxiety and panic attacks who is seen in follow-up at the [facility] behavioral health IOP. I last saw the patient 3 weeks ago and at that time no medication changes were made as the patient prefers his outpatient provider to manage his medications while he is in the IOP. The patient states a few medication changes were made about 1 week ago as noted below by his outpatient provider. He states he feels a little better lately but remains depressed. He did get a new job and he starts that next week at [email or web address]. He also has other interviews for jobs. He states that he is still somewhat down and still has hopelessness but less than before. He still endorses guilt and passive thoughts of but the passive thoughts of have been decreasing in severity and amount. He is drinking 5-6 alcoholic drinks per weekend in the last several weeks and has maybe 1-2 drinks during the week. No panic attacks. He denies suicidal ideation, plan for suicide, homicidal ideation, hallucinations or delusions. Current Psychiatric Medications: [] Zoloft 100 mg p.o. daily (dose increased 1 week ago); propranolol 20 mg p.o. up to twice daily (dose increased 1 week ago); vitamin D Mental Status Examination: [] The patient is a 23-year-old male who appears normal for stated age and has a mustache. He is ambulatory with a normal gait and has no psychomotor agitation or retardation. He is cooperative and pleasant during the interview. Speech is normal rate and rhythm and fluent with no pressure. Eye contact is good. Mood is depressed and anxious. Affect is mildly constricted. Thought process is goal-directed and organized. Thought content: There is evidence of passive thoughts of . There is no evidence of suicidal ideation, plan for suicide, homicidal ideation, hallucinations or delusions. Reality testing is intact. Intelligence is average. Judgment is intact. Insight is fair. Diagnoses: [] 1. Major depressive disorder, recurrent, severe without psychosis 2. Generalized anxiety disorder 3. Financial, job and primary support issues Plan: [] The patient will continue the IOP in behavioral health at [facility] as the structure, support, education and group therapy will hopefully prevent worsening of the patient's symptoms which could require rehospitalization. He felt safe during the interview and if it anytime he does not feel safe he has agreed to let us know or go to the emergency room. No medication changes were made today as the patient wishes his outpatient provider to manage his medications. He will continue to follow-up with his outpatient providers and I will see the patient in follow-up while he is in the IOP. He is encouraged to limit and decrease his alcohol use.
--- NOTE | 2024-08-09 15:14 | BH.MDN ---
Multi-Disciplinary Note Note 30-min Individual: Time Started:: 12:10 Date: 08/09/24 Purpose of session/treatment goals addressed:: Purpose of session was to address goals 1 and 2 from [facility]. Eye Contact:: Good Motor Activity:: Appropriate Appearance:: Casual Speech:: Appropriate Mood:: Euthymic Affect:: Congruent Thoughts:: Linear, Logical and No evidence of hallucinations/delusions noted Staff Interventions:: thought challenging, CBT techniques, strengths perspective, goal setting and taught coping skills Client Response:: Client reported he is feeling better compared to last week. Client stated he started to use opposite action over the weekend instead of allowing himself to stay stuck. Client reported he made himself work for [employer] over the weekend to make money which will help him pay his bills. Client reported he has improved energy and motivation the last few days. Client reported he has been accepting help and support from his girlfriend. Client reported he is still feeling frustrated that he can't find a solid job. Client stated he is supposed to start his new job at a local [employer] next week. Client reported he also is hopeful a recent interview he had at a [employer] could turn into a more solid job. 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 Client reported he does see progress with how quickly he recovered from having depressed days last week. Client stated in the past he would likely still be struggling to get out of the depressed state. Therapist started discussion about tentative discharge time frame from [facility]. Client stated he would like to think about it over the weekend. Client stated he will continue to work on using opposite action, challenging distorted thoughts, and talking to supports to help get through the holidays. Risks/Concerns:: Denies suicidal ideation, plan, or intention to date. future oriented. Progress Toward Goals/Plan:: Progress noted with client reporting improved mood, increased energy, improved motivation, and increased hopefulness. Client utilized healthy coping skills like opposite action, thought challenge, and talking wt supports to help him recover from negative mood last week. Client still struggling with finding a consistent job which has impacted his mood, but client hasn't given up on trying to find a job that would be a good fit for him. Client does have a potential job he is starting next week, but knows this job won't be very consistent. Client is to continue IOP to improve consistent use of healthy coping skills, challenge distorted thoughts, and prevent decompensation. Time Stopped:: 12:40
== END 2024-08-12 23:59 ==
LOC: BHIOP 08:01
PROVIDERS: Referring Provider Psychiatry & Neurology Psychiatry; Visit Provider Psychiatry & Neurology Psychiatry
DX: F33.2 Major depressive disorder, recurrent severe without psychotic features (principal); F41.1 Generalized anxiety disorder
CPT/HCPCS: S9480; 90832; 90834; 90853

== ENCOUNTER 2024-08-14 07:07 | Outpatient (RCR) | payer OTHER, SELFPAY ==
--- NOTE | 2024-08-14 09:05 | BH.SGPN.GN ---
Behaviors/Verbalizations/Mental Status: [] Pt alert and oriented, casually dressed and groomed. Eye contact good. Motor activity appropriate. Speech within normal limits. Affect congruent, mood content. Thoughts linear, logical, no signs of hallucinations or delusions. Reviewed pt?s symptom tracker, no risk for suicidal ideation, plan, or intent 08/14/24 Client Response/Progress/Benefit: [] Pt was an active participant in group discussions. Attentive. Able to identify mental health wins including successfully paying rent independently and without assistance from his parents for the [facility]. Discussed feeling proud and accomplished as a result. Additional win noted as doing the uncomfortable and advocating for his partner when recognizing she had been triggered by a conversation with friends. Stressor noted as starting his new job this week and worrying that the company may be a little disorganized. Did well to reframe and remind himself this is temporary until finding something he feels is a better fit. Benefited from group support, encouragement, and feedback. Will continue in IOP to prevent decompensation, promote mood stability, and continue to improve use of consistent skill application. Narrative Note: []
--- NOTE | 2024-08-14 10:15 | BH.SGPN.GN ---
Behaviors/Verbalizations/Mental Status: [] Client alert and oriented, neatly dressed and groomed. Eye contact good. Motor activity appropriate. Speech within normal limits. Affect congruent, mood euthymic. Thoughts linear, logical, no signs of hallucinations or delusions. Client Response/Progress/Benefit: [] Client was an active participant in group discussions. Attentive during psychoeducation on 4 types of conflict styles (Competing, Collaborating, Avoiding, and Accommodating). Worked with group to define conflict and identify how conflict is helpful. With peers identified barriers to addressing or managing conflict which included:trauma, body language, and cognitive distortions. Client believes they use avoidant style of conflict resolution the most. Client shared this style leads them to have poor boundaries with others. Benefited from group due to increase insight and awareness of benefits to conflict, conflict styles, and obstacles to managing conflict. Will continue in IOP to prevent decompensation, challenge negative thinking patterns, and increase functioning. Narrative Note: []
--- NOTE | 2024-08-14 11:20 | BH.SGPN.GN ---
Behaviors/Verbalizations/Mental Status: [] Client alert and oriented, neatly dressed and groomed. Eye contact good. Motor activity appropriate. Speech within normal limits. Affect congruent, mood euthymic. Thoughts linear, logical, no signs of hallucinations or delusions. Client Response/Progress/Benefit: [] Client engaged in session AEB contributing to discussion and engaging in small group. Attentive during discussion on strategies for more effectively managing conflict in personal life. Client participated in small group for activity and did well collaborating. Client given handout on [employer] with strategies to to communicate effectively in conflict. Client indicated what needs improvement in conflict for them to work on is monitoring emotions and using I statements. Appeared to benefit from gaining strategies to help client better manage conflict. Will continue IOP tx to increase overall functioning and prevent decompensation. Narrative Note: []
--- NOTE | 2024-08-14 14:42 | BH.MDN ---
Multi-Disciplinary Note Note 45-min Individual: Time Started:: 12:05 Date: 08/14/24 Purpose of session/treatment goals addressed:: Purpose of session was to address goals 1 and 2 from [facility]. Eye Contact:: Good Motor Activity:: Appropriate Appearance:: Casual Speech:: Appropriate Mood:: Euthymic Affect:: Congruent Thoughts:: Linear, Logical and No evidence of hallucinations/delusions noted Staff Interventions:: thought challenging, CBT techniques, discharge planning, strengths perspective and goal setting Client Response:: Client reported he had an enjoyable holiday with his girlfriend and her family. Client stated he had been very nervous about meeting certain members of her family because of things she has heard in the past about them but ended up being a really good holiday. Client stated his most recent stressor was being around his girlfriend's friends over the weekend and witnessing them to very judgmental topics that upset his girlfriend. Client reported some of the things they were saying was also hurtful to him. Client stated he talked to his girlfriend about how she is feeling because she was upset in her bedroom and he made decision to go address the issue with her friends. Client stated he was experiencing extreme anger towards how they made her feel but felt like he was able to maintain a calm demeanor. Client reported he felt like he used assertive communication to let them know the things they were saying was hurtful and not okay. Client reported although this situation was upsetting he was able to recover from it and not ruminate after the fact. Client stated this denotes progress for him because in the past he would have likely ruminated and stayed angry for many days. Client reported additional stressor was when he got home last night he found that the cat had pooped in his bathtub. Client stated he took 10 minutes away from the situation use of breathing skills and then use opposite action to make himself cleaned up instead of ignoring it. Client reported this also shows progress with himself because in the past she likely would have ignored it and not dealt with the situation. 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 Discussion about discharge from [facility] client stated he is starting to feel more stable emotionally but would like to see himself be able to maintain this for a couple weeks. Client stated he believes 2-week timeframe for discharge would be sufficient to ensure he can maintain progress she has made thus far. Client agreeable to continue working on using opposite action, challenging distorted thought patterns, and focusing on his accomplishments. Risks/Concerns:: Denies suicidal ideation, plan, intention. Future oriented. Progress Toward Goals/Plan:: Progress note the client reported improve emotion regulation, ability to bounce back from stressful situations, decreased rumination, and improved distress tolerance. Client stated he has noticed some improvement in motivation and decrease in depressed symptoms. 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 Client reported he still hopeful about finding an additional job. Plan is for client to discharge from IOP in 2 weeks. Client to continue IOP to promote use of healthy coping skills, challenge distortions, and prevent decompensation. Time Stopped:: 13:00
--- NOTE | 2024-08-16 09:00 | BH.SGPN.GN ---
Behaviors/Verbalizations/Mental Status: [] Client alert and oriented, casual appearance. Eye contact good. Motor activity appropriate. Speech within normal limits. Affect congruent, mood euthymic. Thoughts linear, logical, no signs of hallucinations or delusions. Reviewed client's symptom tracker, no risk for suicidal ideation, plan, or intent. Client Response/Progress/Benefit: [] Client responded well to session AEB listening to others and sharing thoughts/feelings. Per daily symptom tracker client notes a 1/5 for depression, with 5 being severe, and a 0/5 for anxiety. Client reported mental positive as looking forward to getting back into the work seen by starting his [employer] job [employer]. Client stated additional mental positive as using opposite action this morning and making himself take a shower. Client stated his current stressor is still waiting to hear from the [employer] that he applied for a job for. Client stated he plans to take action by reaching out to this potential job to see if there is any answer as to if he got the job or not. Appeared to benefit from support from peers. Will continue IOP tx to promote utilization of healthy coping skills, challenge distorted thoughts, and prevent decompensation. Narrative Note: []
--- NOTE | 2024-08-16 10:10 | BH.SGPN.GN ---
Behaviors/Verbalizations/Mental Status: [] Pt alert and oriented, casually dressed and groomed. Eye contact good. Motor activity appropriate. Speech within normal limits. Affect congruent, mood content. Thoughts linear, logical, no signs of hallucinations or delusions. Client Response/Progress/Benefit: [] Pt participated during small group discussions. Attentive during psychoeducation on self-sabotage and the reasons people self-sabotage, and impacts on mental health. Showed engagement during small group discussions and helped group identify different types of self-sabotage. Noted he struggles with procrastination, self-medication, and lack of follow-through which leads to disappointment and setting self up for failure. Seemed to benefit from gaining awareness about the different ways people self-sabotage and identifying their own. Pt to continue IOP tx to prevent decompensation, stabilize mood, increase healthy coping, and improve functioning. Narrative Note: []
--- NOTE | 2024-08-16 11:05 | BH.SGPN.GN ---
Behaviors/Verbalizations/Mental Status: []Pt alert and oriented, neatly dressed and groomed. Eye contact good. Motor activity appropriate. Speech within normal limits. Affect congruent, mood euthymic. Thoughts linear, logical, no signs of hallucinations or delusions. Client Response/Progress/Benefit: []Pt responded well to session, attentive and providing input. Pt worked on his mental health wellness garden picture and discussed things that contribute to mental wellness in his life. With peers, pt discussed things that would sabotage one's mental health wellness and added it to the garden metaphor. Pt identified things he personally does to sabotage as self-medicating with marijuana, not following through with goals, and procrastination. Pt attentive during psychoeducation on ways to reduce self-sabotage and pt selected using an accomplishment log as the skill that could help pt reduce self-sabotaging behaviors. Pt appeared to benefit from learning skills and gaining awareness of self-sabotaging behaviors. Pt will continue IOP tx to prevent decompensation, increase distress tolerance skills, and improve daily functioning. Narrative Note: []
--- NOTE | 2024-08-18 09:05 | BH.SGPN.GN ---
Behaviors/Verbalizations/Mental Status: []Pt alert and oriented, neatly dressed and groomed. Eye contact good. Motor activity appropriate. Speech within normal limits. Affect congruent, mood calm. Thoughts linear, logical, no signs of hallucinations or delusions. Reviewed pt?s symptom tracker, no risk for suicidal ideation, plan, or intent 08/18/24 Client Response/Progress/Benefit: []Pt was an active participant in group discussions. Attentive. Able to identify mental health wins including cleaning up around his apartment and not isolating last night when he wanted to. Pt's stressor today he is worried about finances and he felt guilt and some embarrassment that he cannot participate in his family's [place] exchange this year. Pt stated he is feeling content this morning. Pt receptive to feedback from peers which pt reported was helpful. Progress noted. Benefited from group support, encouragement, and feedback. Will continue in IOP to promote mood stability, increase distress tolerance skills, and improve self-motivation. Narrative Note: []
--- NOTE | 2024-08-18 10:10 | BH.SGPN.GN ---
Behaviors/Verbalizations/Mental Status: [] Eye contact is good. Motor activity is appropriate. Appearance is casual. Speech is Appropriate. Mood is depressed. Affect is congruent. Thoughts are linear and logical. No evidence of psychosis Client Response/Progress/Benefit: [] Pt responded well to session AEB contributing to small group discussion, taking notes, and listening attentively to others. Group defined anger and discussed the benefits of managed anger (advocating for self, getting needs met, catalyst for change). Worked with peers in small groups to identify common anger triggers as well as emotions which lay underneath anger or 'drive anger such as; helplessness, fear, guilt, anxiety, grief, shame, and jealously. Appeared to benefit from increased knowledge of the anger cycle as well as personal triggers. Will continue IOP to prevent decompensation/ re-admission to psych unit, stabilize mood, and increase healthy coping skills. Narrative Note: []
--- NOTE | 2024-08-22 09:05 | BH.SGPN.GN ---
Behaviors/Verbalizations/Mental Status: [] Eye contact is good. Motor activity is appropriate. Appearance is casual. Speech is Appropriate. Mood is anxious. Affect is congruent. Thoughts are linear and logical. No evidence of psychosis. Reviewed daily check in sheet and no reports of suicidal ideations or intent. Client Response/Progress/Benefit: [] Pt was an active participant in group discussions. Attentive. ?Woke up super-duper anxious?. Had the urge to self-medicate with marijuana however made utilized health skills which helped he fall back asleep. Insight recently of the negative consequences of self-medication with marijuana (fatigue, low energy, lack of motivation, etc.) on his mental health and overall functioning. Proud of himself for using habit-breaking actions. ?Emotion for today is ?optimistic?. Believes that his mood is stabilizing ?I?m able to appreciate the progress that I?ve made?. Progress noted. Benefited from group support, encouragement, and feedback. Will continue in IOP to maintain safety, prevent decompensation/psych admission, increase healthy coping, and improve functioning. Narrative Note: []
--- NOTE | 2024-08-22 10:15 | BH.SGPN.GN ---
Behaviors/Verbalizations/Mental Status: []Pt alert and oriented, neatly dressed and groomed. Eye contact good. Motor activity appropriate. Speech within normal limits. Affect congruent, mood euthymic. Thoughts linear, logical, no signs of hallucinations or delusions. Client Response/Progress/Benefit: [] Pt engaged and actively participating in discussion, taking notes. Pt attentive during psychoeducation about the window of tolerance and noted personal connections. Group identified what contributes to low distress tolerance. The group gained awareness of the three zones of tolerance and pt was able to identify what they look like in each zone. Pt noted that in the hyperarousal zone pt looks for an escape, procrastinates, and is fearful. In Hypoarousal, pt self-medicates and detaches. When pt is in the window of tolerance, Pt feels productive and engaged. Pt appeared to benefit from psychoeducation on distress tolerance and practicing self-reflection. Pt will continue IOP tx to promote mood stability, increase self-motivation, and reinforce healthy coping skills. Narrative Note: []
--- NOTE | 2024-08-22 11:20 | BH.SGPN.GN ---
Behaviors/Verbalizations/Mental Status: []Pt alert and oriented, casually dressed and groomed. Eye contact good. Motor activity appropriate. Speech within normal limits. Affect congruent, mood content. Thoughts linear, logical, no signs of hallucinations or delusions. Client Response/Progress/Benefit: [] Pt responded well to session AEB taking notes and contributing to discussion throughout. Pt engaged as group continued discussion on distress tolerance and the mental health benefits of widening their overall Window of Tolerance. Pt engaged with group in experiential activity provided input on connections between variables in the activity and distress tolerance. Worked within small groups to identify strategies to increase distress tolerance and reduce hyper-arousal and hypo-arousal states. Identified wanting to begin implementing distress tolerance skills of: big body movement, personal hygiene, and S.T.O.P.P skill. Pt appeared to benefit from gaining insight and learning strategies to increase distress tolerance. Pt will continue IOP tx to promote use of healthy coping skills, stabalize mood, and prevent decompensation. Narrative Note: []
--- NOTE | 2024-08-23 09:00 | BH.SGPN.GN ---
Behaviors/Verbalizations/Mental Status: [] Pt alert and oriented, casually dressed and groomed. Eye contact good. Motor activity appropriate. Speech within normal limits. Affect congruent, mood anxious and dysthymic. Thoughts linear, logical, no signs of hallucinations or delusions. Reviewed pt?s symptom tracker, no risk for suicidal ideation, plan, or intent 08/23/24 Client Response/Progress/Benefit: [] Pt was an active participant in group discussions. Attentive. Able to identify mental health wins including going to get a haircut and making it to group today despite not wanting to leave to house this morning following a series of bad dreams. Stated using opposite action and getting dress for the day rather than wearing sweats helped. Noted that he additionally spent time journaling for emotional release rather than ruminating on his thoughts. Stressor noted as his sister's upcoming visit. Pt explained that they had a falling out over the summer and he is anxious about having to confront her on this. Benefited from group support, encouragement, and feedback. Will continue in IOP to prevent decompensation, promote mood stability, and continue to improve use of thought challenging. Narrative Note: []
--- NOTE | 2024-08-23 10:05 | BH.SGPN.GN ---
Behaviors/Verbalizations/Mental Status: []Client alert and oriented, casually dressed and groomed. Eye contact good. Motor activity appropriate. Speech within normal limits. Affect constricted, mood euthymic. Thoughts linear, logical, no signs of hallucinations or delusions. Client Response/Progress/Benefit: [] Pt was an attentive an active participant, AEB taking notes and providing input in group discussion when prompted. Attentive during psychoeducation. Pt shared when he doesn't engage in self-care, he is more critical of himself and others. Pt engaged during interactive discussion in which the group defined self-care and discussed its benefits. Group discussed barriers to engaging in self-care. Group members together came up with guilt, time, ?people pleasing?, not knowing what to do, and perception that its unproductive as barriers to engage in self-care. Pt participated in small groups where they worked to identify and challenge common self-care ?myths?. Benefited from increased awareness of self-care, its benefits, and the consequences of not utilizing self-care strategies. Will continue IOP tx to promote use of healthy coping skills, improve distress tolerance, and prevent decompensation.
--- NOTE | 2024-08-23 11:05 | BH.SGPN.GN ---
Behaviors/Verbalizations/Mental Status: []Client alert and oriented, neatly dressed and groomed. Eye contact good. Motor activity appropriate. Speech within normal limits. Affect congruent, mood euthymic. Thoughts linear, logical, no signs of hallucinations or delusions. Client Response/Progress/Benefit: [] Pt engaged in discussion reviewing different areas of self-care and completing self-assessment of current self-care, as well as providing input throughout discussion. Did well to complete self-care self-assessment worksheet. Pt identified how pt is doing in each category and what self-care activities pt wants to start using. Pt selected social self-care to begin practicing more consistently. Pt plans to do this by reaching out by text to at least one friend this week. Appeared to benefit from completing the self-care evaluation and gaining insights into current self-care practices, as well as identifying areas in which pt would like to improve upon. Pt will continue IOP tx to promote mood stability, increase motivation, and reinforce use of healthy coping skills. Narrative Note: []
--- NOTE | 2024-08-24 14:38 | BH.MDN ---
Multi-Disciplinary Note Note 30-min Individual: Time Started:: 12:00 Date: 08/23/24 Purpose of session/treatment goals addressed:: Purpose of session was to address goals 1 and 2 from [facility]. Eye Contact:: Good Motor Activity:: Appropriate Appearance:: Casual Speech:: Appropriate Mood:: Euthymic and Anxious Affect:: Congruent Thoughts:: Linear, Logical and No evidence of hallucinations/delusions noted Staff Interventions:: thought challenging, CBT techniques, mindfulness skills, discharge planning, strengths perspective and goal setting Client Response:: Client reported he had stressful dreams last night and then woke up feeling anxious. Client stated he is thinking his stressful dreams may be connected to recently having some desire to reach out to his sister to express how he feels about some comments that she made about 6 months ago. Client shared when he was visiting her in [place] she made the comment that she does not support his sexuality because it goes against her presybeterian. Client stated he abruptly left visiting her that day and has distanced himself from communicating with her since this situation. Client reported it upsets him that the relationship has been negatively impacted by her not supporting who he is as a person. Client stated feeling anxious if he brings it up with the hopes of getting an apology from her that he will end up being disappointed. Therapist and client discussed the pros and cons of having the discussion with his sister and sharing how he feels about the comments that she has made. Client stated he will continue to further evaluate potential outcomes of whether he addresses this concern or if he keeps it to himself. Client reported besides the stressor of his relationship with his sister he feels like he has been doing really well. Client stated he was able to work over the weekend and his bosses put him aside to tell him that he is doing a great job and they would want him to take on more responsibility when he feels ready. Client reported this was a boost to his confidence because he has only worked for this new job for 2 weeks and they are already noting his work ethic. Client stated feeling more ready to discharge from [facility] because he has been able to show more consistent progress in the last couple weeks with managing his mood and feeling more like himself. Client agreeable to start thinking about skills and strategies that he would like to include on his maintenance plan that will be completed in their last individual session next week. Risks/Concerns:: Denies suicidal ideation, plan, or intention. Future oriented. Progress Toward Goals/Plan:: Progress noted with client reporting decrease in depression and anxiety, continued improvement with daily functioning, and ability to bounce back from stressful situations. Client does note a slight increase in anxiety in regards to a potential conflict with his sister but identifies that he has been working through it in a more effective way. Plan is for client to continue IOP this week to maintain gains, continue use of healthy coping skills, and prevent decompensation. Plan is for client to discharge from IOP next week. Client is established with outpatient counseling and psychiatry. Time Stopped:: 12:30
--- NOTE | 2024-08-25 09:00 | BH.SGPN.GN ---
Behaviors/Verbalizations/Mental Status: [] Eye contact is good. Motor activity is appropriate. Appearance is casual. Speech is Appropriate. Mood is euthymic. Affect is full. Thoughts are linear and logical. No evidence of psychosis. Reviewed daily check in sheet and no reports of suicidal ideations or intent. Client Response/Progress/Benefit: [] Pt is an active participant in group discussions. Attentive. Daily symptom tracker notes 09/17 for depression, anxiety, and irritability. Pt has able to identify several wins. Is making an effort to decrease alcohol and marijuana use which has shown to have benefits on his mental health. Set limits on his alcohol use last evening and followed through. Several situational stressors which he believes he is managing ok. 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 Believes that he is helping her and managing his own emotions effectively. Has maintained employment and appears to be gaining benefiting from purpose, socialization, and meaning from his job. Benefited from group support, encouragement, and feedback. Will continue in IOP to prevent decompensation/re-admission to psych unit, increase healthy coping, and maintain safety . Narrative Note: []
--- NOTE | 2024-08-25 10:05 | BH.SGPN.GN ---
Behaviors/Verbalizations/Mental Status: []Pt alert and oriented, casually dressed and groomed. Eye contact good. Motor activity appropriate. Speech within normal limits. Affect congruent, mood euthymic. Thoughts linear, logical, no signs of hallucinations or delusions. ? Client Response/Progress/Benefit: [] Pt responded well to session, attentive and engaged. Group participated in the discussion defining stigma as well as what stigma has kept pt's from doing in their lives. Pt stated mental health stigma has led pt to feel like ?I?m a puzzle piece that doesn?t fit with my family.? Pt worked with peers to begin discussion of what reinforces stigma, both socially and internally, and this was discussed further in the next group. Pt appeared to benefit from learning about the different types of stigma as well as gaining awareness of how stigma has personally impacted pt. Pt will continue IOP tx to promote the use of healthy coping skills, reinforce mood stability, and increase self-confidence. Narrative Note: []
--- NOTE | 2024-08-25 11:05 | BH.SGPN.GN ---
Behaviors/Verbalizations/Mental Status: []Pt alert and oriented, casually dressed and groomed. Eye contact good. Motor activity appropriate. Speech within normal limits. Affect congruent, mood euthymic. Thoughts linear, logical, no signs of hallucinations or delusions. Client Response/Progress/Benefit: [] Pt engaged participant AEB participating in the activity, providing input during small group discussion, and listening attentively to others. Pt appeared to connect with discussion in the benefits of addressing mental health stigma which included: improved relationships, increased willingness to seek help, increased happiness, and improved confidence. Group brainstormed strategies to combat social and perceived stigma. Pt identified that they can contribute to stigma by shutting down and not advocating for themselves.?Pt shared one thing pt can do to combat stigma is to be mindful to not use negative mental health labels or jokes that are discriminating. Appeared to benefit from increasing awareness of strategies to combat stigma. Pt is to continue IOP to promote use of healthy coping skills, decrease distortions, and prevent decompensation.
--- NOTE | 2024-08-29 09:00 | BH.SGPN.GN ---
Behaviors/Verbalizations/Mental Status: [] Eye contact is good. Motor activity is appropriate. Appearance is casual. Speech is Appropriate. Mood is euthymic. Affect is full. Thoughts are linear and logical. No evidence of psychosis. Reviewed daily check in sheet and no reports of suicidal ideations or intent. Client Response/Progress/Benefit: [] Pt was an active participant in group discussions. Attentive. Daily symptom tracker notes no distress. Pt was able to identify several mental health wins and healthy habits. Utilizing skills. Feels that he is present for himself and others. ? not many stressors?. Emotion for today is ? content?. Progress noted. Benefited from group support, encouragement, and feedback. Will continue in IOP to prevent decompensation/re-admission to psych unit, stabilize mood, increase healthy coping, and improve functioning. Narrative Note: []
--- NOTE | 2024-08-29 10:10 | BH.SGPN.GN ---
Behaviors/Verbalizations/Mental Status: []Pt alert and oriented, casually dressed and groomed. Eye contact good. Motor activity appropriate. Speech within normal limits. Affect congruent, mood content. Thoughts linear, logical, no signs of hallucinations or delusions. Client Response/Progress/Benefit: [] Pt was an active?participant in small group discussion. Pt?s group worked together to identify benefits of healthy relationships which included insight, accountability, and guidance. Group identified factors that lead to unhealthy relationships. Pt?s personal factors included past negative experiences, trust issues, and poor boundaries. Actively participated in group experiential activity and expressed ideas to group. Benefited from increased insight and awareness of benefits of healthy relationships and factors that contribute to unhealthy relationships. Will continue IOP tx to promote mood stability, increase communication, and improve daily functioning. Narrative Note: []
--- NOTE | 2024-08-29 11:10 | BH.SGPN.GN ---
Behaviors/Verbalizations/Mental Status: [] Pt alert and oriented, casually dressed and groomed. Eye contact good. Motor activity appropriate. Speech within normal limits. Affect full, mood euthymic, Thoughts linear, logical, no signs of hallucinations or delusions Client Response/Progress/Benefit: [] Client responded well to session, engaged and taking notes throughout. Worked with group to connect components of the experiential activity with characteristics of healthy and unhealthy relationships. Attentive during psychoeducation about characteristics of healthy, unhealthy, and abusive relationships. Client reported he would like to continue to improve communication by being honest with his roommates about a boundary he has. Appeared to benefit from identifying current healthy relationship attributes and an area client wants to work on to build healthier relationships. Client to continue IOP to promote use of healthy coping skills, challenge distorted thoughts, and prevent decompensation.
--- NOTE | 2024-09-04 09:00 | BH.SGPN.GN ---
Behaviors/Verbalizations/Mental Status: [] Client alert and oriented, casual appearance. Eye contact good. Motor activity appropriate. Speech within normal limits. Affect congruent, mood euthymic. Thoughts linear, logical, no signs of hallucinations or delusions. Reviewed client's symptom tracker, no risk for suicidal ideation, plan, or intent. Client Response/Progress/Benefit: [] Client responded well to session AEB listening to others and sharing thoughts/feelings. Per daily symptom tracker client reported a 0/5, with 5 representing severe, for depression and a 0/5 for anxiety. Client reported mental health positive as feeling better physically after having influenza A last week. 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 Client reported mental health stressor as the upcoming holiday. Appeared to benefit from support from peers. Will continue IOP tx to promote use of healthy coping skills, challenge negative/distorted thoughts, and prevent decompensation.
--- NOTE | 2024-09-04 10:10 | BH.SGPN.GN ---
Behaviors/Verbalizations/Mental Status: [] Client alert and oriented, casually dressed and groomed. Eye contact good. Motor activity appropriate. Speech within normal limits. Affect congruent, mood euthymic, Thoughts linear, logical, no signs of hallucinations or delusions Client Response/Progress/Benefit: [] Client responded well to session, contributing to discussion and engaged during the activity. Group identified the benefits of change which included: personal growth, increased confidence, improving mental health, progressing, and becoming resilient. Worked with the group to identify barriers to change, which included: fear of failure, lack of motivation, fear of the unknown, trauma, and negative thinking. Client participated along with group in activity where they discussed the emotions related to change. Benefited from increased awareness and understanding of emotions, benefits, and barriers related to change. Will continue IOP tx to increase functioning and increase positive coping skills. Narrative Note: []
--- NOTE | 2024-09-04 11:10 | BH.SGPN.GN ---
Behaviors/Verbalizations/Mental Status: [] Client alert and oriented, casually dressed and groomed. Eye contact good. Motor activity appropriate. Speech within normal limits. Affect full, mood euthymic, Thoughts linear, logical, no signs of hallucinations or delusions. Client Response/Progress/Benefit: [] Client responded well to session, attentive. Did well to process activity and work with group to relate the strategies used to overcome barriers in the activity to managing change in own life. Client identified a change they would like to make is establish boundaries. Client identified currently being in action stage for this particular change. Client stated goal is to tell his roommates things they do that bother him. Appeared to benefit from identifying a small goal to work towards. Client will continue IOP tx to prevent decompensation and gain healthy coping skills. Narrative Note: []
--- NOTE | 2024-09-08 09:00 | BH.SGPN.GN ---
Behaviors/Verbalizations/Mental Status: [] Eye contact is good. Motor activity is appropriate. Appearance is casual. Speech is Appropriate. Mood is euthymic. Affect is full. Thoughts are linear and logical. No evidence of psychosis. Reviewed daily check in sheet and no reports of suicidal ideations or intent. Client Response/Progress/Benefit: [] Pt was an active participant in group discussions. Attentive. ? I survived xmas?. Shared that he is utilizing skills learned on a more consistent basis. Has been ?establishing boundaries? and being assertive in his communication. Shared that today is his last day in [facility] as he is set to discharge successfully. Briefly shared his progress and struggles while in the program which consisted of an inpatient hospitalization, losing a job, and other psychosocial stressors. Increased confidence in his ability to manage crisis events. Progress noted. Benefited from group support, encouragement, and feedback. Will be discharged successfully today. Narrative Note: []
--- NOTE | 2024-09-08 10:10 | BH.SGPN.GN ---
Behaviors/Verbalizations/Mental Status: []Eye contact is good. Motor activity is appropriate. Appearance is casual. Speech is Appropriate. Mood is euthymic. Affect is congruent. Thoughts are linear and logical. No evidence of psychosis. Client Response/Progress/Benefit: [] Pt was engaged and participating throughout, providing input and taking notes. Participated in an interactive discussion on defining anxiety and identifying cognitive and physiological symptoms of anxiety. The group discussed the role of anxiety on isolation, avoidance, and who this emotion impacts their ability to start and complete activities/goals. Pt identified their physical/physiological signs of anxiety which includes: increased heart rate, restlessness, and tense jaw. Benefited from increased awareness and insight on anxiety and its impact. Will continue in IOP to promote use of healthy coping skills, challenge disotrted thoguhts, and prevent decompensation.
--- NOTE | 2024-09-08 11:10 | BH.SGPN.GN ---
Behaviors/Verbalizations/Mental Status: []Pt alert and oriented, casually dressed and groomed. Eye contact good. Motor activity appropriate. Speech within normal limits. Affect congruent, mood anxious and euthymic. Thoughts linear, logical, no signs of hallucinations or delusions. Client Response/Progress/Benefit: [] Pt was an active participant AEB pt providing input and listening attentively to peers. Attentive during psychoeducation on mindfulness coping skills and their impact on reducing anxiety and improving overall mental health wellness. Group was able to identify self-soothing and mind-based coping skills which included: 5-senses, meditation, deep breathing, TIPP, thought challenging, categories, and progressive muscle relaxation. Pt also participated with peers in practicing mindfulness skills in session including deep breathing. Pt would like to work on categories to manage anxiety. Appeared to benefit from increasing repertoire of anxiety reduction skills. Pt will discharge from IOP tx as pt has accomplished his tx goals and no longer meets criteria for IOP level of care. Narrative Note: []
--- NOTE | 2024-09-08 14:31 | BH.MDN ---
Multi-Disciplinary Note Note 30-min Individual: Time Started:: 12:05 Date: 09/08/24 Purpose of session/treatment goals addressed:: Purpose of session was to identify treatment progress, complete maintenance plan, and solidify aftercare plans. Eye Contact:: Good Motor Activity:: Appropriate Appearance:: Casual Speech:: Appropriate Mood:: Euthymic Affect:: Full Thoughts:: Linear, Logical and No evidence of hallucinations/delusions noted Staff Interventions:: CBT techniques, discharge planning, strengths perspective, reviewed DSM-5 and other (Completed maintenance plan) Client Response:: Client reported feeling bittersweet about discharging from [facility] today. Client stated he knows he has made significant treatment progress since starting IOP but is naturally anxious and worried about being able to maintain the progress he has made since he will not have the same support level as he has in [facility]. Client reported he has noticed progress with his ability to bounce back and recover from difficult emotions and stressors. Client stated in the past 1 stressor could result in him ruminating or having a depressed state for a week or more. Client stated in the last few weeks he has noticed ability to bounce back within a day or 2 from stressful situations. Client reports decreased depression, decreased anxiety, improved ability to function, improve communication, and ability to challenge distorted and negative thought patterns. Client reported he does believe having a job is helping with his mood boost and is looking forward to potentially picking up more hours and responsibility at this new job. Client worked with therapist to complete maintenance plan in which he identified triggers, warning signs, self-care activities, and healthy coping skills. Client reported he plans to meet with his outpatient individual therapist at least 2 times a week to start so that he has sufficient support while transitioning out of intensive level of care. Client stated he will continue to follow up with his outpatient psychiatrist for continued medication management. Risks/Concerns:: Denies suicide ideation, plan, intention. Future oriented. Progress Toward Goals/Plan:: Progress noted as evidenced by DSM-5 cross cutting scores at discharge. Per DSM-5 client's depression has decreased by 85%, anxiety has decreased by 63% thoughts of hurting himself has decreased by 100%, and overall decrease in mental symptoms by 55% when compared to admission DSM-5 scores. Client also reports improved daily functioning, ability to challenge negative thought patterns, engaging in opposite action, improved boundary setting, and has been able to maintain a new job for the last 3 weeks. Plan is for client to discharge from [facility] today. Client will follow up with his outpatient individual provider for counseling and his outpatient psychiatrist. Client stated he plans to establish for twice a week individual counseling for a few weeks to help him with transitioning out of intensive level of care. Time Stopped:: 12:25
--- NOTE | 2024-09-08 14:47 | BH.DS ---
Discharge Summary Demographics Date of Admission:: 07/10/24 Discharge Date: 09/08/24 Presenting Problems at Admission:: The patient is a 23-year-old single male who identifies as nonbinary with a history of depression, anxiety and panic attacks who was referred to the [facility] behavioral health [facility] after recent psychiatric admission at [place] from June 29 to July 05, 2024 for depression and suicidal ideation. Recent stressors include the patient losing his job for 5 months ago and this has resulted in financial stress. Another stressor was the patient was living in [place] and one of his roommates started to date his ex girlfriend in March 2024 so the patient moved out of there and moved back to [place] and he now lives in [place] with 2 roommates. The patient endorses sadness, hopelessness, worthlessness, lack of motivation, loss of interest, but still enjoys video games play and playing them with friends. Energy has been lower for the past 2 or 3 days and his concentration is somewhat decreased. He endorses guilt, passive thoughts of . He denies suicidal ideation, plan for suicide, homicidal ideation, hallucinations, delusions, goldy. Discharge Diagnoses:: 1. Major depressive disorder, recurrent, severe without psychosis F33.2 2. Generalized anxiety disorder Reason for Discharge:: Client has made significant treatment progress since starting IOP and no longer meets medical necessity for [facility] level of care. Treatment Progress During Treatment & Response: Progress noted as evidenced by DSM-5 cross cutting scores at discharge. Per DSM-5 client's depression has decreased by 85%, anxiety has decreased by 63%, thoughts of hurting himself has decreased by 100%, and overall decrease in mental symptoms by 55% when compared to admission DSM-5 scores. Client also reports improved daily functioning, ability to challenge negative thought patterns, engaging in opposite action, improved boundary setting, and has been able to maintain a new job for the last 3 weeks. Client was faced with several significant stressors at times during the program and showed ability to bounce back from each stressor. Client has shown improved recovery from difficult moments with less time spent ruminating and laying around. Pt responded well to treatment AEB overall consistent attendance, actively engaged in group sessions, and often followed through with homework/goals throughout program. Issues Still to be Addressed:: Pt could benefit from continuing to practice challenging distorted/negative thoughts. Reinforcement of healthy coping skills, anxiety management skills, and distress tolerance. Discharge Recommendations/Instructions:: Pt is established with individual counselor and stated he plans to meet with her two times a week to start. Pt is also to follow up with [facility] for psychiatric medication management. Discharge Handout
== END 2024-09-08 13:25 | disposition home or self-care (01) ==
LOC: BHIOP 07:07
PROVIDERS: Referring Provider Psychiatry & Neurology Psychiatry; Visit Provider Psychiatry & Neurology Psychiatry
DX: F33.2 Major depressive disorder, recurrent severe without psychotic features (principal); F41.1 Generalized anxiety disorder
CPT/HCPCS: S9480; 90832; 90834; 90853